=== PATIENT | female | born 2000 | race Caucasian/White ===

== ENCOUNTER 2018-03-09 11:05 | Emergency (ER) | payer BC, MEDICAID, SELFPAY ==
--- NOTE | 2018-03-09 11:05 | DT_ITS ---
This patient was seen during an EMR downtime March 07, 2018 - March 14, 2018. This patient may have a combination of paper and electronic documentation or all paper documentation. All documentation is viewable within the e-chart portion of [facility] for each patient visit.
[2018-03-12 09:44] LABS: Basophil% 1.1 % (0-1); Eosinophils% 2.3 % (0-5); Hematocrit 39.6 % (37-47); Hemoglobin 13.4 g/dl (12.0-15.0); Lymphocyte % 30.6 % (19-41); Mean Corp Hgb Conc 33.8 g/gl (32-36); Mean Corpuscular Hgb 28.3 pg (27.0-32.0); Mean Corpuscular Volume 83.7 fL (81-99); Neutrophil % 57.9 % (47-70); POSITIVE COUNT NO; POSITIVE DIFFERENTIAL NO; POSITIVE MORPHOLOGY NO; Platelet Count 228 K/mm3 (150-450); RBC Distribution Width CV 13.7 % (11.6-14.6); RBC Distribution Width SD 41.8 fl (35.1-43.9); Red Blood Count 4.73 M/mm3 (4.2-5.4); White Blood Count 7.3 K/mm3 (4.4-11.0)
[2018-03-12 09:45] LABS: Absolute Lymphocyte Count 2.22 X10^3/ul (0.83-4.51); Absolute Neutrophil Count 4.2 X10^3/uL (2.0-7.7); Basophil# 0.08 X10^3/uL; Eosinophil# 0.17 X10^3/uL; Lymphocyte # 2.22 X10^3/ul (4.0); Monocyte# 0.58 X10^3/uL
[2018-03-12 10:13] LABS: Pregnancy, Serum, hCG Quali. NEGATIVE Negative (0-9 Nonpreg)
== END 2018-03-10 01:43 | disposition home or self-care (01) ==
LOC: ED 03-10 17:38
PROVIDERS: Emergency Provider Emergency Medicine; Family Provider Family Medicine; PCP Family Medicine
DX: N93.9 Abnormal uterine and vaginal bleeding, unspecified (principal)
CPT/HCPCS: 84703; 85025; 86850; 86900; 99284; J7030; A4216

== ENCOUNTER 2018-03-13 15:50 | Emergency (ER) | payer BC, MEDICAID, SELFPAY ==
--- NOTE | 2018-03-13 15:50 | DT_ITS ---
This patient was seen during an EMR downtime March 07, 2018 - March 14, 2018. This patient may have a combination of paper and electronic documentation or all paper documentation. All documentation is viewable within the e-chart portion of [facility] [employer] for each patient visit.
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
== END 2018-03-13 17:40 | disposition home or self-care (01) ==
LOC: ED 03-14 08:18
PROVIDERS: Emergency Provider Emergency Medicine; Family Provider Family Medicine; PCP Family Medicine
DX: S00.83XA Contusion of other part of head, initial encounter (principal); S10.93XA Contusion of unspecified part of neck, initial encounter; Y08.89XA Assault by other specified means, initial encounter; Y93.9 Activity, unspecified; Y92.9 Unspecified place or not applicable; F17.200 Nicotine dependence, unspecified, uncomplicated
CPT/HCPCS: 70450; 70486; 70490; 99283

== ENCOUNTER 2018-05-10 19:34 | Emergency (ER) | payer BC, MEDICAID, SELFPAY ==
[2018-05-10 19:36] VITALS: BP 103/69; PULSE 124; RESP 18; TEMP 37.2; O2SAT 97; BMI 21.5
[2018-05-10 20:10] LABS: Bacteria 0 SEEN /hpf (None Seen); Red Blood Cells-Urine 0 SEEN /hpf (0-5)
[2018-05-10 20:20] LABS: Color, Urine Yellow (Yellow); Glucose, Dipstick Normal (Normal); Ketone-Dipstick 15 mg/dl (Negative); Leukocyte Esterase-Dipstick 25 /ul (Negative); Nitrite-Dipstick Negative (Negative); Occult Blood-Urine 10 /ul (Negative); Protein-Dipstick Negative (Negative); Urine Bilirubin Dipstick Negative (Negative); Urine Clarity Clear (Clear); Urine Urobilinogen Normal (Normal)
[2018-05-10 20:23] LABS: Absolute Lymphocyte Count 1.88 X10^3/ul (0.83-4.51); Absolute Neutrophil Count 9.8 X10^3/uL (2.0-7.7); Basophil# 0.05 X10^3/uL; Basophil% 0.4 % (0-1); Eosinophil# 0.21 X10^3/uL; Eosinophils% 1.5 % (0-5); Hematocrit 40.2 % (37-47); Hemoglobin 13.5 g/dl (12.0-15.0); Lymphocyte # 1.88 X10^3/ul (4.0); Lymphocyte % 13.7 % (19-41); Mean Corp Hgb Conc 33.6 g/gl (32-36); Mean Corpuscular Hgb 27.9 pg (27.0-32.0); Mean Corpuscular Volume 83.1 fL (81-99); Mean Platelet Vol. 10.1 fl (6.2-12.0); Monocyte# 1.68 X10^3/uL; Monocyte% 12.3 % (0-10); Neutrophil # 9.83 X10^3/uL (2.7-7.7); Neutrophil % 71.9 % (47-70); Platelet Count 208 K/mm3 (150-450); RBC Distribution Width CV 13.4 % (11.6-14.6); Red Blood Count 4.84 M/mm3 (4.2-5.4); White Blood Count 13.7 K/mm3 (4.4-11.0)
[2018-05-10 20:24] LABS: Differential Indicated SCAN CRITERIA MET; POSITIVE COUNT NO; POSITIVE DIFFERENTIAL YES; POSITIVE MORPHOLOGY NO
[2018-05-10 20:34] LABS: Anion Gap 7 (5-15); BUN 10 mg/dL (7-18); BUN/Creat Ratio 11.5 RATIO (10-20); Calcium,Total 8.9 mg/dL (8.5-10.1); Chloride 105 mmol/L (98-107); Creatinine, Serum 0.87 mg/dL (0.55-1.02); EST Glomerular Filtration Rate 89 mL/min (>60); Est Glom Filt Rate - Afr Amer 108 mL/min (>60); Estimated Creatinine Clearance 97.37 ml/min; Glucose 81 mg/dL (74-106); Potassium 3.5 mmol/L (3.5-5.1); Sodium Level 138 mmol/L (136-145)
[2018-05-10 20:39] LABS: Pregnancy, Serum, hCG Quali. NEGATIVE Negative (0-9 Nonpreg)
[2018-05-10] MEDS: 0.9% Normal Saline 1,000 ML 125 ML IV (20:45)
[2018-05-10 20:46] LABS: Platelet Estimate ADEQUATE (ADEQ); Red Cell Morphology NORM C+C NORMAL (NORM C&C)
[2018-05-10 20:51] LABS: Mucous, Urine 1+ /hpf (<or=2+); Squamous Epithelial Cells - UA 0-5 SEEN /hpf (5-10); White Blood Cells 0-5 SEEN /hpf (0-5)
[2018-05-10 20:58] VITALS: TEMP 36.2
--- NOTE | 2018-05-10 21:25 | ED.VISSUMM ---
- ER Visit Summary Date of Service: 05/10/18 Chief Complaint: [Abdominal pain] History of Present Illness: The patient is a 17 F [presents the emergency department with intermittent abdominal pain and cramping that lasts a few minutes at a time then resolves. Patient also complains of some pain in her low back. Patient states initially she started yesterday with a sore throat and some congestion and thought she was getting sick. Patient's had a slight cough. Patient also concerned because she is 2 weeks late on her menstrual period. Patient took a home test a week ago and it was negative. She has had fever at home up to 99.2.] Patient sore throat currently resolved. Patient does complain of slight headache. Physical Examination: [HEENT-PERRLA, EOMI. Cranial nerves II through XII grossly intact. TMs clear. Mucous membranes moist. No adenopathy. No pharyngeal erythema. No exudates. No adenopathy on exam. Cardiovascular-regular rate and rhythm without murmur or ectopy Lungs-clear to auscultation, chest wall stable without crepitus or subcu emphysema Abdomen-normoactive bowel sounds, soft, nontender, no rebound or rigidity, no peritoneal signs. Extremities-intact ?4, normal range of motion, normal pulses, atraumatic] Test Results: [CBC with differential obtained showed a white blood cell count of 13.7, hemoglobin 13, hematocrit 40, platelet 208. Chemistries were unremarkable. Urinalysis was normal. HCG was negative.] Emergency Department Course and Treatment: [Patient received a liter normal same fluid bolus] Treatment Plan: [Advised patient use ibuprofen or Tylenol for discomfort as I suspect she likely has a viral URI.] Disposition: [Discharged home in stable condition] Impression: [Viral upper respiratory infection] This note was generated with [employer] software. It may contain incorrect words, spelling, and punctuation that were not noted in review of the chart prior to signing ED Disposition - Plan for ED Patient: Chief Complaint: Abd Pain Referrals: Tim Cotter III, MD [Primary Care Provider] -
--- NOTE | 2018-05-10 21:28 | ED.DEP ---
ED Disposition - Plan for ED Patient: Chief Complaint: Abd Pain Instructions: ED URI Viral Referrals: Tim Cotter III, MD [Primary Care Provider] - 3-5 Days
[2018-05-10 21:35] VITALS: RESP 20
[2018-05-11 14:20] LABS: Pathologist Review Reviewed
== END 2018-05-10 21:35 | disposition home or self-care (01) ==
PROVIDERS: Emergency Provider Emergency Medicine; Family Provider Family Medicine; PCP Family Medicine
DX: J06.9 Acute upper respiratory infection, unspecified (principal); Z72.0 Tobacco use
CPT/HCPCS: 80048; 81001; 84703; 85025; 96360; 99283; J7030

== ENCOUNTER 2018-05-26 17:15 | Emergency (ER) | payer BC, MEDICAID, SELFPAY ==
[2018-05-26 17:15] VITALS: BP 119/70; PULSE 98; RESP 15; TEMP 36.6; O2SAT 93; BMI 21.3
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
[2018-05-26] MEDS: Ibuprofen 600 MG Tablet PO (17:44)
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
[2018-05-26 19:15] VITALS: BP 119/78; PULSE 67; RESP 16; O2SAT 99
== END 2018-05-26 19:16 | disposition home or self-care (01) ==
PROVIDERS: Emergency Provider Emergency Medicine; Family Provider Family Medicine; PCP Family Medicine
DX: S00.33XA Contusion of nose, initial encounter (principal); Y04.2XXA Assault by strike against or bumped into by another person, initial encounter; Y93.89 Activity, other specified; Y92.9 Unspecified place or not applicable; Z72.0 Tobacco use
CPT/HCPCS: 70450; 99283

== ENCOUNTER 2018-10-20 13:31 | Emergency (ER) | payer BC, MEDICAID, SELFPAY ==
[2018-10-20 13:32] VITALS: BP 124/72; PULSE 86; RESP 18; TEMP 36.6; O2SAT 98; BMI 18.6
[2018-10-20] MEDS: Ondansetron 4 MG/2 ML Vial IV (14:29)
[2018-10-20] MEDS: Morphine 4 MG/ML Syringe IV (14:29)
[2018-10-20] MEDS: 0.9% Normal Saline 1,000 ML 125 ML IV (14:29)
[2018-10-20 14:44] LABS: Absolute Lymphocyte Count 0.96 X10^3/ul (0.83-4.51); Basophil# 0.04 X10^3/uL; Basophil% 0.2 % (0-1); Differential Indicated SCAN CRITERIA MET; Eosinophils% 0.6 % (0-5); Hematocrit 40.3 % (37-47); Hemoglobin 13.6 g/dl (12.0-15.0); Lymphocyte # 0.96 X10^3/ul (4.0); Lymphocyte % 5.7 % (19-41); Mean Corp Hgb Conc 33.7 g/gl (32-36); Mean Corpuscular Hgb 28.3 pg (27.0-32.0); Mean Platelet Vol. 10.7 fl (6.2-12.0); Monocyte# 1.63 X10^3/uL; Monocyte% 9.7 % (0-10); Neutrophil # 14.04 X10^3/uL (2.7-7.7); Neutrophil % 83.6 % (47-70); POSITIVE COUNT NO; POSITIVE DIFFERENTIAL YES; POSITIVE MORPHOLOGY NO; Platelet Count 193 K/mm3 (150-450); RBC Distribution Width CV 13.7 % (11.6-14.6); RBC Distribution Width SD 42.1 fl (35.1-43.9); White Blood Count 16.8 K/mm3 (4.4-11.0)
[2018-10-20 14:52] LABS: Anion Gap 9 (5-15); BUN 8 mg/dL (7-18); BUN/Creat Ratio 11.1 RATIO (10-20); Calcium,Total 9.1 mg/dL (8.5-10.1); Chloride 110 mmol/L (98-107); Creatinine, Serum 0.72 mg/dL (0.55-1.02); EST Glomerular Filtration Rate 110 mL/min (>60); Est Glom Filt Rate - Afr Amer 133 mL/min (>60); Estimated Creatinine Clearance 103.49 ml/min; Glucose 86 mg/dL (74-106); Potassium 3.3 mmol/L (3.5-5.1); Sodium Level 142 mmol/L (136-145)
[2018-10-20 15:16] LABS: Pregnancy, Serum, hCG Quali. NEGATIVE Negative (0-9 Nonpreg)
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
[2018-10-20 16:17] LABS: Mucous, Urine 0 SEEN /hpf (<or=2+)
[2018-10-20 16:23] VITALS: BP 119/74; PULSE 79; RESP 12; O2SAT 98
[2018-10-20 16:36] LABS: Color, Urine Amber (Yellow); Glucose, Dipstick Normal (Normal); Leukocyte Esterase-Dipstick 100 /ul (Negative); Nitrite-Dipstick Negative (Negative); Occult Blood-Urine 250 /ul (Negative); Protein-Dipstick 100 mg/dl (Negative); Specific Gravity, Urine 1.025 (1.002-1.030); Urine Bilirubin Dipstick Negative (Negative); Urine Clarity Cloudy (Clear); Urine Urobilinogen Normal (Normal)
[2018-10-20 16:47] LABS: Ketone-Dipstick 150 mg/dl (Negative)
--- NOTE | 2018-10-20 16:47 | ED.DCSUM_ITS ---
- ER Visit Summary Date of Service: 10/20/18 Chief Complaint: [Abdominal pain] History of Present Illness: The patient is a 17 F [presents to the emergency department complaint of abdominal pain that started last evening. Patient states that she had some discomfort last night and throughout the night however about an hour and a half ago the pain became more severe she called her grandmother who brought her into the emergency department to be evaluated. Patient describes the pain is lower abdomen. She rates her pain a 10 out of 10. Patient has had multiple episodes of diarrhea this morning she has had some nausea and some vomiting. Patient states that she had not had a menstrual period for about 2 months but when she went to the restroom today she passed what looked like some pinkish tissue. Patient noted also that she started having vaginal bleeding. Patient also has had some dysuria symptoms and some frequency. She denies any fever. She denies any sick contacts. Patient is sexually active.] Physical Examination: [HEENT-PERRLA, EOMI. Cranial nerves II through XII grossly intact. TMs clear. Mucous membranes moist. No adenopathy. Cardiovascular-regular rate and rhythm without murmur or ectopy Lungs-clear to auscultation, chest wall stable without crepitus or subcu emphysema Abdomen-normoactive bowel sounds, soft. Patient has diffuse tenderness palpation over the lower abdomen and right lower quadrant. There is no rebound, rigidity, or perineal signs. Extremities-intact ?4, normal range of motion, normal pulses, atraumatic] Test Results: [CBC with differential obtained showed an elevated white blood cell count 16.8, hemoglobin 13.6, hematocrit 40, platelets 193. Chemistries unremarkable. HCG was negative. CT scan of the abdomen pelvis showed a normal appendix and large amount of stool throughout the sigmoid colon. Urinalysis positive for 25-50 WBCs, 50-100 RBCs, and rare bacteria.] Emergency Department Course and Treatment: [Patient was medicated with Zofran and morphine for pain. Patient was started on Bactrim.] Treatment Plan: [Patient will be given a prescription for Zofran and Bactrim and Pyridium] Disposition: [Discharged home in stable condition] Impression: [UTI Gastroenteritis Abdominal pain] This note was generated with [employer] dictation software. It may contain incorrect words, spelling, and punctuation that were not noted in review of the chart prior to signing ED Disposition - Plan for ED Patient: Chief Complaint: Abd Pain Referrals: Tim Cotter III, MD [Primary Care Provider] -
--- NOTE | 2018-10-20 16:47 | ED.RN ---
LASHANDA FROM LAB CALLED WITH [facility] OF [address]. DR. WILLIAM INFORMED OF SAME.
[2018-10-20 17:03] LABS: Bacteria RARE /hpf (None Seen); Red Blood Cells-Urine 50-100 SEEN /hpf (0-5); Squamous Epithelial Cells - UA 0-5 SEEN /hpf (5-10); White Blood Cells 25-50 SEEN /hpf (0-5)
[2018-10-20 17:04] LABS: Amorphous Sediment 1+ URATE
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
--- NOTE | 2018-10-20 17:10 | ED.DEP ---
ED Disposition - Plan for ED Patient: Chief Complaint: Abd Pain Instructions: ED Abdominal Pain Unkn Cause, ED UTI Cystitis Female, ED Gastroenteritis Viral Prescriptions: Ondansetron [Zofran Odt] 4 mg PO Q8H PRN PRN #10 tab PRN Reason: Nausea Phenazopyridine HCl [Pyridium] 200 mg PO BID PRN PRN #10 tab PRN Reason: Pain Smz/Tmp Ds [Bactrim Ds] 1 tab PO BID #10 tab Referrals: Tim Cotter III, MD [Primary Care Provider] - 3-5 Days Robbin Watts [STAFF PHYSICIAN] - 3-5 Days
[2018-10-20 17:26] VITALS: BP 125/74; PULSE 62; RESP 15; O2SAT 100
[2018-10-20] MEDS: Smz/Tmp Ds Tablet 1 TABLET PO (17:29)
[2018-10-25 10:15] LABS: Pathologist Review Reviewed
--- OUTSIDE RECORDS SUMMARY | 2018-12-25 11:18 | XMS RPT_ITS ---
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 Weight Last Period 60.8 kg 01/10/18 Cynthia Pelayo) 02/05/2018 3:53 PM Signed Subjective HPI Pt presents with right eye redness and drainage since this morning. She states it was matted shut this morning. She denies wearing contacts, does wear glasses. No cold symptoms. Does not think she got anything in her eye. Review of Systems Eyes: Positive for pain, discharge and redness. All other systems reviewed and are negative. PAST MEDICAL HISTORY Diagnosis Date - Anxiety and depression 03/22/2017 - NEGATIVE MEDICAL HISTORY - PTSD (post-traumatic stress disorder) 03/22/2017 Current Outpatient Prescriptions: ciprofloxacin HCl (CILOXAN) 0.3 % ophthalmic solution Use 1-2 Drops in the right eye four times daily for 7 days. Disp: 1 Bottle Rfl: 0 albuterol HFA (PROVENTIL HFA, VENTOLIN HFA) 90 mcg/actuation inhaler Inhale 2 Puffs as instructed every 4 hours as needed for Wheezing/Shortness of Breath. Disp: 1 Inhaler Rfl: 0 Joqzbusjyckzeoh-Ohwujiwbp-UN (BROMFED DM) 2-30-10 mg/5 mL syrup Take 5-10 ml po q6h prn Disp: 120 mL Rfl: 0 citalopram hydrobromide (CELEXA) 10 mg tablet Take 1 tablet by mouth once daily. Disp: 30 tablet Rfl: 2 No current facility-administered medications for this visit. PAST SURGICAL HISTORY Procedure Laterality Date - NONE FAMILY HISTORY Problem Relation Age of Onset - Asthma Father - Cancer Paternal Grandfather Lung, bone Social History Substance Use Topics - Smoking status: Current Some Day Smoker Years: 1.00 Types: Cigarettes - Smokeless tobacco: Never Used Comment: 2 cigarettes per weeks - Alcohol use No BP 108/60 Pulse 82 Temp 36.9 ?C (98.5 ?F) (Right Tympanic) Resp 16 Wt 60.8 kg (134 lb) LMP 01/10/2018 Objective Physical Exam Constitutional: She is oriented to person, place, and time and well-developed, well-nourished, and in no distress. HENT: Head: Normocephalic and atraumatic. Right Ear: External ear normal. Left Ear: External ear normal. Nose: Nose normal. Mouth/Throat: Oropharynx is clear and moist. Eyes: EOM are normal. Lids are everted and swept, no foreign bodies found. Right eye exhibits discharge. No foreign body present in the right eye. Left eye exhibits no discharge. No foreign body present in the left eye. Right conjunctiva is injected. Left conjunctiva is not injected. No signs of orbital or periorbital cellulitis. Neck: Normal range of motion. Cardiovascular: Normal rate, regular rhythm and normal heart sounds. Pulmonary/Chest: Effort normal and breath sounds normal. Lymphadenopathy: She has no cervical adenopathy. Neurological: She is alert and oriented to person, place, and time. Skin: Skin is warm and dry. Psychiatric: Affect and judgment normal. Nursing note and vitals reviewed. ASSESSMENT/PLAN: 1. Acute conjunctivitis of right eye, unspecified acute conjunctivitis type - ICD9: 372.00, ICD10: H10.31 - see medication orders- cipro otic. - course and contagiousness issues discussed, including hand washing. - Instructed to call if high fever, development of periorbital redness or swelling, eye pain, visual changes, concerns or if symptoms persist. Cynthia Pelayo PA-C Referring Provider: SELF [[id number]] Allergies As of Date: 02/05/2018 Noted Allergy Reaction SEASONAL ALLERGIES 11/28/2014 14 - Other: See Comments Comments: Runny nose Date Reviewed: 02/05/2018 Reviewed by: India Mills LPN - Fully Assessed Reason for Visit: Eye Problem [43] Cmt: Since this am right eye irritated Primary Visit Diagnosis:Acute conjunctivitis of right eye, unspecified acute conjunctivitis type [H10.31] Order(s):ciprofloxacin HCl (CILOXAN) 0.3 % ophthalmic solutionUse 1-2 Drops in the right eye four times daily for 7 days.Disp: 1 BottleRfl: 0 Prescriptions as of 02/05/2018 Sig: CIPROFLOXACIN 0.3 % EYE DROPS Use 1-2 Drops in the right ey* ALBUTEROL SULFATE HFA 90 MCG/* Inhale 2 Puffs as instructed * BROMPHENIRAMINE-PSEUDOEPHEDRI* Take 5-10 ml po q6h prn CITALOPRAM 10 MG TABLET Take 1 tablet by mouth once d* Medication notes this encounter RMLZIEFIEORLMBL-UHUQNBNKGPIHDZA-JU 2 MG-30 MG-10 MG/5 ML SYRUP >> India Mills LPN 02/05/2018 3:01 PM >> [place] [employer] Sat February 05, 2018 3:01 PM [place] done Problem List As Of Date 02/05/2018 Noted Resolved COMMON MIGRAINE [346.1] INVALID FOR* Well adolescent visit [Z00.129] INVALID FOR* Hamstring tightness of both lower extremities [*INVALID FOR* Anxiety and depression [F41.9, F32.9] INVALID FOR* PTSD (post-traumatic stress disorder) [F43.10] INVALID FOR* Prescriptions ordered this encounter Disp Refills Start End CIPROFLOXACIN 0.3 % EYE DROPS 1 Gio* 0 02/05/2018 02/12/2018 Route: RIGHT EYE Sig: Use 1-2 Drops in the right eye four times daily for 7 days. Encounter Status:Closed by CYNTHIA PELAYO PA-C on 02/05/18 PROGRESS Observed: 12/31/2017 Status: COMPLETED Source: [facility] 7:17 PM [facility] HNO ID: [id number] Author: Kim Richey) Thelma Service: (none) Author Type: Nurse Practitioner Type: Progress Notes Filed: 12/31/2017 7:48 PM Note Text: Subjective HPI Reinier Eugene is a 17 year old female who presents with a cough and congestion for the past 5 days, cough is worse, she has been taking Bromfed as prescribed here 2 days ago. She had to leave work due to cough. Review of Systems Constitutional: Negative. Negative for chills and fever. HENT: Positive for congestion. Negative for sore throat. Respiratory: Positive for cough and shortness of breath. Cardiovascular: Positive for chest pain (burning in bronchial area). Gastrointestinal: Negative. Negative for abdominal pain, diarrhea, nausea and vomiting. Skin: Negative. BP 121/78 Pulse 84 Temp 37.3 ?C (99.2 ?F) (Tympanic) Resp 18 Wt 60.3 kg (133 lb) LMP 11/19/2017 (Exact Date) SpO2 100% PAST MEDICAL HISTORY Diagnosis Date - Anxiety and depression 03/22/2017 - NEGATIVE MEDICAL HISTORY - PTSD (post-traumatic stress disorder) 03/22/2017 PAST SURGICAL HISTORY Procedure Laterality Date - NONE ALLERGIES Seasonal Allergies MEDICATIONS Vbpiksijnbnonou-Wgivvsxbk-HP (BROMFED DM) 2-30-10 mg/5 mL syrup Take 5-10 ml po q6h prn citalopram hydrobromide (CELEXA) 10 mg tablet Take 1 tablet by mouth once daily. FAMILY HISTORY Problem Relation Age of Onset - Asthma Father - Cancer Paternal Grandfather Lung, bone Social History Substance Use Topics - Smoking status: Current Some Day Smoker Years: 1.00 Types: Cigarettes - Smokeless tobacco: Never Used Comment: 2 cigarettes per weeks - Alcohol use No Objective Physical Exam Constitutional: She is well-developed, well-nourished, and in no distress. HENT: Head: Normocephalic. Right Ear: Tympanic membrane, external ear and ear canal normal. Left Ear: Tympanic membrane, external ear and ear canal normal. Nose: Nose normal. Mouth/Throat: Uvula is midline, oropharynx is clear and moist and mucous membranes are normal. No posterior oropharyngeal edema or posterior oropharyngeal erythema. Eyes: Conjunctivae are normal. Right eye exhibits no discharge. Left eye exhibits no discharge. Neck: Neck supple. Cardiovascular: Normal rate, regular rhythm and normal heart sounds. Pulmonary/Chest: Effort normal and breath sounds normal. No respiratory distress. She has no wheezes. She has no rales. Lymphadenopathy: She has no cervical adenopathy. Neurological: She is alert. Skin: Skin is warm and dry. No rash noted. Nursing note and vitals reviewed. ASSESSMENT/PLAN: 1. Cough - ICD9: 786.2, ICD10: R05 - ALBUTEROL SULFATE HFA 90 MCG/ACTUATION AEROSOL INHALER - INHALATIONAL SPACING DEVICE - PREDNISONE 20 MG TABLET Work note provided for today's visit. - Follow-up with your PCP in 3-5 days if symptoms have not improved or sooner if symptoms worsen - Discussed red flags and need for immediate medical evaluation if any occur. - Discussed supportive care treatment with fluids, rest and analgesia. - Discussed expected course of illness Kim Mitchell APRN.CNP CNOV Observed: 12/31/2017 Status: COMPLETED Source: [place] 6:45 PM [facility] REPOSITORY Office Visit (WSTR) REINIER EUGENE ([id number]) 2000 F Date Time Provider Department 12/31/17 6:45 PM KIM MITCHELL (VETERINARY PHARMACOLOGIST) [facility] During your visit today, we recorded the following information about you: Temperature Pulse Respiration Blood pressure 99.2 degrees 84/minute 18/minute 121/78 Weight Last Period 60.3 kg 11/19/17 Kim Mitchell APRN.CNP 12/31/2017 7:48 PM Signed Subjective HPI Reinier Eugene is a 17 year old female who presents with a cough and congestion for the past 5 days, cough is worse, she has been taking Bromfed as prescribed here 2 days ago. She had to leave work due to cough. Review of Systems Constitutional: Negative. Negative for chills and fever. HENT: Positive for congestion. Negative for sore throat. Respiratory: Positive for cough and shortness of breath. Cardiovascular: Positive for chest pain (burning in bronchial area). Gastrointestinal: Negative. Negative for abdominal pain, diarrhea, nausea and vomiting. Skin: Negative. BP 121/78 Pulse 84 Temp 37.3 ?C (99.2 ?F) (Tympanic) Resp 18 Wt 60.3 kg (133 lb) LMP 11/19/2017 (Exact Date) SpO2 100% PAST MEDICAL HISTORY Diagnosis Date - Anxiety and depression 03/22/2017 - NEGATIVE MEDICAL HISTORY - PTSD (post-traumatic stress disorder) 03/22/2017 PAST SURGICAL HISTORY Procedure Laterality Date - NONE ALLERGIES Seasonal Allergies MEDICATIONS Kkimpjaefinejtg-Isedbifpd-BV (BROMFED DM) 2-30-10 mg/5 mL syrup Take 5-10 ml po q6h prn citalopram hydrobromide (CELEXA) 10 mg tablet Take 1 tablet by mouth once daily. FAMILY HISTORY Problem Relation Age of Onset - Asthma Father - Cancer Paternal Grandfather Lung, bone Social History Substance Use Topics - Smoking status: Current Some Day Smoker Years: 1.00 Types: Cigarettes - Smokeless tobacco: Never Used Comment: 2 cigarettes per weeks - Alcohol use No Objective Physical Exam Constitutional: She is well-developed, well-nourished, and in no distress. HENT: Head: Normocephalic. Right Ear: Tympanic membrane, external ear and ear canal normal. Left Ear: Tympanic membrane, external ear and ear canal normal. Nose: Nose normal. Mouth/Throat: Uvula is midline, oropharynx is clear and moist and mucous membranes are normal. No posterior oropharyngeal edema or posterior oropharyngeal erythema. Eyes: Conjunctivae are normal. Right eye exhibits no discharge. Left eye exhibits no discharge. Neck: Neck supple. Cardiovascular: Normal rate, regular rhythm and normal heart sounds. Pulmonary/Chest: Effort normal and breath sounds normal. No respiratory distress. She has no wheezes. She has no rales. Lymphadenopathy: She has no cervical adenopathy. Neurological: She is alert. Skin: Skin is warm and dry. No rash noted. Nursing note and vitals reviewed. ASSESSMENT/PLAN: 1. Cough - ICD9: 786.2, ICD10: R05 - ALBUTEROL SULFATE HFA 90 MCG/ACTUATION AEROSOL INHALER - INHALATIONAL SPACING DEVICE - PREDNISONE 20 MG TABLET Work note provided for today's visit. - Follow-up with your PCP in 3-5 days if symptoms have not improved or sooner if symptoms worsen - Discussed red flags and need for immediate medical evaluation if any occur. - Discussed supportive care treatment with fluids, rest and analgesia. - Discussed expected course of illness VAISHALI Gandhi APRN.CNP 12/31/2017 7:21 PM Signed Take medications as prescribed. If not improving in 3-5 days, or you have worsening symptoms, see your primary care provider for recheck. COUGH: Your doctor wants you to have this information about coughing. The body has a cough reflex which helps expel mucous secretions and irritants from the lung and airway passages. Cough spasms are periods of continuous coughing lasting several minutes. Most coughs is caused by virus infections which may last for up to 2-3 weeks. Coughing helps to protect the lung from pneumonia. A persistent cough lasting longer than 4-6 weeks requires medical evaluation by your primary care doctor. Treatment of cough includes measures to loosen the cough and thin the mucous. Warm liquids, cough drops, and nonprescription cough medicine may help reduce dry hacking cough. Use a humidifier if necessary as dry air can make coughs worse. Ultrasonic humidifiers are especially useful as they kill molds and many bacteria. Some cough medicines have antihistamines, decongestants, or alcohol in them; there is no proof that any of these help control cough. Prescription cough medicine or those with dextromethorphan (DM) should be reserved for dry coughs that prevent sleep or cause spasms or chest pain. Avoid any exposure to cigarette smoke as this will worsen the cough or make it last much longer. Call your doctor right away if you or your child have increased breathing difficulty, a high fever, a cough that lasts longer than 3 weeks, or other serious complaints. Referring Provider: SELF [[id number]] Allergies As of Date: 12/31/2017 Noted Allergy Reaction SEASONAL ALLERGIES 11/28/2014 14 - Other: See Comments Comments: Runny nose Date Reviewed: 12/31/2017 Reviewed by: Kim ([facility]) Thelma - Fully Assessed Reason for Visit: URI symptoms [Other] Cmt: chest feels like it's on fire, coughing really bad Primary Visit Diagnosis:Cough [R05] Order(s):albuterol HFA (PROVENTIL HFA, VENTOLIN HFA) 90 mcg/actuation inhalerInhale 2 Puffs as instructed every 4 hours as needed for Wheezing/Shortness of Breath.Disp: 1 InhalerRfl: 0 Inhalational Spacing Device spcr1 Device one time only for 1 dose.Disp: 1 EachRfl: 0 predniSONE (DELTASONE) 20 mg tabletTake 1 tablet by mouth once daily for 4 days. Take daily with food.Disp: 4 tabletRfl: 0 Prescriptions as of 12/31/2017 Sig: BROMPHENIRAMINE-PSEUDOEPHEDRI* Take 5-10 ml po q6h prn ALBUTEROL SULFATE HFA 90 MCG/* Inhale 2 Puffs as instructed * INHALATIONAL SPACING DEVICE 1 Device one time only for 1 * PREDNISONE 20 MG TABLET Take 1 tablet by mouth once d* CITALOPRAM 10 MG TABLET Take 1 tablet by mouth once d* Medication notes this encounter CITALOPRAM 10 MG TABLET >> Genesis Serna CMA, MA 12/31/2017 6:51 PM >> ADAM DUARTEGENESIS Kriss Dec 31, 2017 6:51 PM Not taking Problem List As Of Date 12/31/2017 Noted Resolved COMMON MIGRAINE [346.1] INVALID FOR* Well adolescent visit [Z00.129] INVALID FOR* Hamstring tightness of both lower extremities [*INVALID FOR* Anxiety and depression [F41.8] INVALID FOR* PTSD (post-traumatic stress disorder) [F43.10] INVALID FOR* Other instructions from your clinician: Take medications as prescribed. If not improving in 3- 5 days, or you have worsening symptoms, see your primary care provider for recheck. COUGH: Your doctor wants you to have this information about coughing. The body has a cough reflex which helps expel mucous secretions and irritants from the lung and airway passages. Cough spasms are periods of continuous coughing lasting several minutes. Most coughs is caused by virus infections which may last for up to 2-3 weeks. Coughing helps to protect the lung from pneumonia. A persistent cough lasting longer than 4-6 weeks requires medical evaluation by your primary care doctor. Treatment of cough includes measures to loosen the cough and thin the mucous. Warm liquids, cough drops, and nonprescription cough medicine may help reduce dry hacking cough. Use a humidifier if necessary as dry air can make coughs worse. Ultrasonic humidifiers are especially useful as they kill molds and many bacteria. Some cough medicines have antihistamines, decongestants, or alcohol in them; there is no proof that any of these help control cough. Prescription cough medicine or those with dextromethorphan (DM) should be reserved for dry coughs that prevent sleep or cause spasms or chest pain. Avoid any exposure to cigarette smoke as this will worsen the cough or make it last much longer. Call your doctor right away if you or your child have increased breathing difficulty, a high fever, a cough that lasts longer than 3 weeks, or other serious complaints. Prescriptions ordered this encounter Disp Refills Start End ALBUTEROL SULFATE HFA 90 MCG/ACTUATI* 1 In* 0 12/31/2017 Route: INHALATION Sig: Inhale 2 Puffs as instructed every 4 hours as needed for Wheezing/Shortness of Breath. INHALATIONAL SPACING DEVICE 1 Ea* 0 12/31/2017 12/31/2017 Route: Misc Si Device one time only for 1 dose. PREDNISONE 20 MG TABLET 4 ta* 0 12/31/2017 01/04/2018 Route: ORAL Sig: Take 1 tablet by mouth once daily for 4 days. Take daily with food. Letter Text Kim Mitchell APRN.CNP Urgent Care [address] [facility] [address] Dept: [phone] 12/31/2017 Reinier Eugene [address] [facility] [address] To Whom it May Concern: This is to certify that Reinier Eugene was seen at our office for medical care. Reinier may return to work on 01/01/2018. If you have any questions please feel free to call. Sincerely: Kim Mitchell APRN.CNP Encounter Status:Closed by KIM MITCHELL on 12/31/17 PROGRESS Observed: 12/28/2017 Status: COMPLETED Source: [place] 4:46 PM [facility] HNO ID: [id number] Author: Corazon ([place]) VAISHALI Concepcion Service: (none) Author Type: Nurse Practitioner Type: Progress Notes Filed: 12/28/2017 4:51 PM Note Text: Subjective HPI HPI Reinier Eugene is a 17 year old female who presents today for CC of cough and congestion This started yesterday She is also having a sore throat. Symptoms are worsened by nothing She has tried no treatment or medications. Risk factors family members ill PMH not significant Pulse 95 Temp 36.4 ?C (97.6 ?F) (Left Tympanic) Resp 16 Wt 60.8 kg (134 lb) LMP 11/19/2017 (Exact Date) SpO2 99% ALLERGIES Allergen Reactions - Seasonal Allergies Other: See Comments Runny nose ACTIVE PROBLEM LIST Migraine Without Aura Well Adolescent Visit Hamstring Tightness of Both Lower Extremities Anxiety and Depression Ptsd (Post-Traumatic Stress Disorder) Family History Problem Relation Age of Onset - Asthma Father - Cancer Paternal Grandfather Lung, bone Social History Marital status: Single Spouse name: Years of education: Number of children: Occupational History 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 Negative for chills, fever and malaise/fatigue. HENT: Positive for congestion and sinus pain. Negative for ear pain and sore throat. Respiratory: Positive for cough. Negative for sputum production, shortness of breath and wheezing. Cardiovascular: Negative for chest pain. Musculoskeletal: Negative for myalgias. Skin: Negative for rash. Neurological: Negative for headaches. Objective Physical Exam Constitutional: She is well-developed, well-nourished, and in no distress. HENT: Head: Normocephalic and atraumatic. Right Ear: Tympanic membrane, external ear and ear canal normal. Tympanic membrane is not injected, not erythematous, not retracted and not bulging. No middle ear effusion. Left Ear: Tympanic membrane, external ear and ear canal normal. Tympanic membrane is not injected, not erythematous, not retracted and not bulging. No middle ear effusion. Nose: Mucosal edema and rhinorrhea present. Right sinus exhibits no maxillary sinus tenderness and no frontal sinus tenderness. Left sinus exhibits no maxillary sinus tenderness and no frontal sinus tenderness. Mouth/Throat: Uvula is midline and mucous membranes are normal. Posterior oropharyngeal erythema present. No oropharyngeal exudate, posterior oropharyngeal edema or tonsillar abscesses. Clear thick mucus - post nasal drainage Eyes: Conjunctivae and EOM are normal. Pupils are equal, round, and reactive to light. Neck: Normal range of motion. Cardiovascular: Normal rate, regular rhythm and normal heart sounds. Pulmonary/Chest: Effort normal and breath sounds normal. No respiratory distress. She has no decreased breath sounds. She has no wheezes. She has no rhonchi. She has no rales. Lymphadenopathy: Head (right side): No submental, no submandibular, no tonsillar, no preauricular and no posterior auricular adenopathy present. Head (left side): No submental, no submandibular, no tonsillar, no preauricular and no posterior auricular adenopathy present. She has no cervical adenopathy. Right cervical: No posterior cervical adenopathy present. Left cervical: No posterior cervical adenopathy present. Right: No supraclavicular adenopathy present. Left: No supraclavicular adenopathy present. Skin: Skin is warm and dry. Psychiatric: Affect normal. Nursing note and vitals reviewed. ASSESSMENT/PLAN: 1. URI with cough and congestion - ICD9: 465.9, ICD10: J06.9 - Discussed viral etiology and rationale for treatment. Rest as much as possible. Motrin or Tylenol as needed for fever or pain. Salt water gargles, chloraseptic spray or lozenges as needed for sore throat. Nasal saline irrigation at least 2 x day. Drink at least 8 glasses of fluids per day that aren't caffeinated. Eat a nutritious diet. Use a humidifier in your room at night. DO NOT take any other OTC cough or cold medication while taking the prescription Bromfed DM. It is ok to take an OTC pain reliever/fever brand inspector though such as advil or tylenol as needed. * Seek medical care immediately, call 911, go to ER if you have chest pain, difficulty breathing, shortness of breath, inability to swallow. Diagnosis and treatment plan were discussed and questions were answered to the patient's satisfaction. Pt acknowledged understanding of concepts and follow up plan. Specific signs and symptoms that would indicate the need for higher level of care were discussed in detail warranting prompt ER evaluation. Corazon Concepcion APRN.BLAIR CNOV Observed: 12/28/2017 Status: COMPLETED Source: [place] 4:30 PM [facility] REPOSITORY Office Visit (WSTR) REINIER EUGENE ([id number]) 2000 F Date Time Provider Department 12/28/17 4:30 PM CORAZON CONCEPCION (BLAIR) WSTR During your visit today, we recorded the following information about you: Temperature Pulse Respiration Weight 97.6 degrees 95/minute 16/minute 60.8 kg Last Period 11/19/17 Corazon Concepcion, DENTAL CERAMIST HELPER.BLAIR, DENTAL CERAMIST HELPER.VETERINARY PHARMACOLOGIST 12/28/2017 4:51 PM Signed Subjective HPI HPI Reinier Eugene is a 17 year old female who presents today for CC of cough and congestion This started yesterday She is also having a sore throat. Symptoms are worsened by nothing She has tried no treatment or medications. Risk factors family members ill PMH not significant Pulse 95 Temp 36.4 ?C (97.6 ?F) (Left Tympanic) Resp 16 Wt 60.8 kg (134 lb) LMP 11/19/2017 (Exact Date) SpO2 99% ALLERGIES Allergen Reactions - Seasonal Allergies Other: See Comments Runny nose ACTIVE PROBLEM LIST Migraine Without Aura Well Adolescent Visit Hamstring Tightness of Both Lower Extremities Anxiety and Depression Ptsd (Post-Traumatic Stress Disorder) Family History Problem Relation Age of Onset - Asthma Father - Cancer Paternal Grandfather Lung, bone Social History Marital status: Single Spouse name: Years of education: Number of children: Occupational History 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 Negative for chills, fever and malaise/fatigue. HENT: Positive for congestion and sinus pain. Negative for ear pain and sore throat. Respiratory: Positive for cough. Negative for sputum production, shortness of breath and wheezing. Cardiovascular: Negative for chest pain. Musculoskeletal: Negative for myalgias. Skin: Negative for rash. Neurological: Negative for headaches. Objective Physical Exam Constitutional: She is well-developed, well-nourished, and in no distress. HENT: Head: Normocephalic and atraumatic. Right Ear: Tympanic membrane, external ear and ear canal normal. Tympanic membrane is not injected, not erythematous, not retracted and not bulging. No middle ear effusion. Left Ear: Tympanic membrane, external ear and ear canal normal. Tympanic membrane is not injected, not erythematous, not retracted and not bulging. No middle ear effusion. Nose: Mucosal edema and rhinorrhea present. Right sinus exhibits no maxillary sinus tenderness and no frontal sinus tenderness. Left sinus exhibits no maxillary sinus tenderness and no frontal sinus tenderness. Mouth/Throat: Uvula is midline and mucous membranes are normal. Posterior oropharyngeal erythema present. No oropharyngeal exudate, posterior oropharyngeal edema or tonsillar abscesses. Clear thick mucus - post nasal drainage Eyes: Conjunctivae and EOM are normal. Pupils are equal, round, and reactive to light. Neck: Normal range of motion. Cardiovascular: Normal rate, regular rhythm and normal heart sounds. Pulmonary/Chest: Effort normal and breath sounds normal. No respiratory distress. She has no decreased breath sounds. She has no wheezes. She has no rhonchi. She has no rales. Lymphadenopathy: Head (right side): No submental, no submandibular, no tonsillar, no preauricular and no posterior auricular adenopathy present. Head (left side): No submental, no submandibular, no tonsillar, no preauricular and no posterior auricular adenopathy present. She has no cervical adenopathy. Right cervical: No posterior cervical adenopathy present. Left cervical: No posterior cervical adenopathy present. Right: No supraclavicular adenopathy present. Left: No supraclavicular adenopathy present. Skin: Skin is warm and dry. Psychiatric: Affect normal. Nursing note and vitals reviewed. ASSESSMENT/PLAN: 1. URI with cough and congestion - ICD9: 465.9, ICD10: J06.9 - Discussed viral etiology and rationale for treatment. Rest as much as possible. Motrin or Tylenol as needed for fever or pain. Salt water gargles, chloraseptic spray or lozenges as needed for sore throat. Nasal saline irrigation at least 2 x day. Drink at least 8 glasses of fluids per day that aren't caffeinated. Eat a nutritious diet. Use a humidifier in your room at night. DO NOT take any other OTC cough or cold medication while taking the prescription Bromfed DM. It is ok to take an OTC pain reliever/fever brand inspector though such as advil or tylenol as needed. * Seek medical care immediately, call 911, go to ER if you have chest pain, difficulty breathing, shortness of breath, inability to swallow. Diagnosis and treatment plan were discussed and questions were answered to the patient's satisfaction. Pt acknowledged understanding of concepts and follow up plan. Specific signs and symptoms that would indicate the need for higher level of care were discussed in detail warranting prompt ER evaluation. Corazon Concepcion APRN.BLAIR Concepcion APRN.VAISHALI THOMAS 12/28/2017 4:50 PM Signed ASSESSMENT/PLAN: 1. URI with cough and congestion - ICD9: 465.9, ICD10: J06.9 - Discussed viral etiology and rationale for treatment. Rest as much as possible. Motrin or Tylenol as needed for fever or pain. Salt water gargles, chloraseptic spray or lozenges as needed for sore throat. Nasal saline irrigation at least 2 x day. Drink at least 8 glasses of fluids per day that aren't caffeinated. Eat a nutritious diet. Use a humidifier in your room at night. DO NOT take any other OTC cough or cold medication while taking the prescription Bromfed DM. It is ok to take an OTC pain reliever/fever brand inspector though such as advil or tylenol as needed. * Seek medical care immediately, call 911, go to ER if you have chest pain, difficulty breathing, shortness of breath, inability to swallow. Referring Provider: SELF [[id number]] Allergies As of Date: 12/28/2017 Noted Allergy Reaction SEASONAL ALLERGIES 11/28/2014 14 - Other: See Comments Comments: Runny nose Date Reviewed: 12/28/2017 Reviewed by: Corazon (Blair) VAISHALI Concepcion - Fully Assessed Reason for Visit: Cough [28] Shortness of Breath [227] Primary Visit Diagnosis:URI with cough and congestion [J06.9] Order(s):Sybjimqhluwnddf-Eubgqkefa-RD (BROMFED DM) 2-30-10 mg/5 mL syrupTake 5-10 ml po q6h prnDisp: 120 mLRfl: 0 Prescriptions as of 12/28/2017 Sig: BROMPHENIRAMINE-PSEUDOEPHEDRI* Take 5-10 ml po q6h prn CITALOPRAM 10 MG TABLET Take 1 tablet by mouth once d* Problem List As Of Date 12/28/2017 Noted Resolved COMMON MIGRAINE [346.1] INVALID FOR* Well adolescent visit [Z00.129] INVALID FOR* Hamstring tightness of both lower extremities [*INVALID FOR* Anxiety and depression [F41.8] INVALID FOR* PTSD (post-traumatic stress disorder) [F43.10] INVALID FOR* Other instructions from your clinician: ASSESSMENT/PLAN: 1. URI with cough and congestion - ICD9: 465.9, ICD10: J06.9 - Discussed viral etiology and rationale for treatment. Rest as much as possible. Motrin or Tylenol as needed for fever or pain. Salt water gargles, chloraseptic spray or lozenges as needed for sore throat. Nasal saline irrigation at least 2 x day. Drink at least 8 glasses of fluids per day that aren't caffeinated. Eat a nutritious diet. Use a humidifier in your room at night. DO NOT take any other OTC cough or cold medication while taking the prescription Bromfed DM. It is ok to take an OTC pain reliever/fever brand inspector though such as advil or tylenol as needed. * Seek medical care immediately, call 911, go to ER if you have chest pain, difficulty breathing, shortness of breath, inability to swallow. Prescriptions ordered this encounter Disp Refills Start End NXPUJICGIOLYQQU-QEKQZHKOLJHVZIE-WB 2* 120 * 0 12/28/2017 Sig: Take 5-10 ml po q6h prn Encounter Status:Closed by CORAZON CONCEPCION CNP on 12/28/17 CNOV Observed: 12/13/2017 Status: COMPLETED Source: [place] 11:00 AM [facility] REPOSITORY Office Visit (FAMPWS) REINIER EUGENE ([id number]) 2000 F Date Time Provider Department 12/13/17 11:00 AM FLAKITA MARCUS) JENNI During your visit today, we recorded the following information about you: Pulse Respiration Blood pressure Weight 64/minute 18/minute 110/70 61.2 kg Flakita Marcus CNP 12/13/2017 11:14 AM Signed 12/13/2017 Patient presents with: Recheck: from urgent care, needs note to return to work SUBJECTIVE: This is a 17 year old that is here today for Above Complaints. Seen in on 12/07/2017 for right ankle pain after a fall down three steps. Right ankle was x-rayed with results as below. IMPRESSION: NO ACUTE BONY ABNORMALITY Template Checker: KATHERYN ? Transcribe Date/Time: Dec ?6:07P Dictated by : CESAR RODRIGUEZ MD This examination was interpreted and the report reviewed and electronically signed by: CESAR RODRIGUEZ MD on Dec ?6:14PM ?EST Results-Findings * * *Final Report* * * DATE OF EXAM: Dec ?6:06PM ? WOX ? 5297 ?- ?XR ANKLE 3V AP/LAT/OBL RT ?/ PROCEDURE REASON: Unspecified injury of right foot, initial encounter ?? ? * * * * Physician Interpretation * * * * ?HISTORY: ?Unspecified injury of right foot, initial encounter TECHNIQUE: ?3 views right ankle, 3 views right foot COMPARISON: ? None. RESULT: There is no acute fracture of the foot or ankle. Joint spaces are normal. Normal ankle mortise. Mild hallux valgus. Mild soft tissue swelling laterally about the fifth metatarsal head. ?There is no radiopaque foreign body identified in the soft tissue. Today she presents because she needs a letter releasing her back to work . She denies right ankle/foot pain, swelling, bruising, numbness, or tingling. She is able to bare full weight without any difficulties. PAST MEDICAL HISTORY Diagnosis Date - Anxiety and depression 03/22/2017 - NEGATIVE MEDICAL HISTORY - PTSD (post-traumatic stress disorder) 03/22/2017 ALLERGIES Seasonal Allergies MEDICATIONS Current Outpatient Prescriptions: citalopram hydrobromide (CELEXA) 10 mg tablet Take 1 tablet by mouth once daily. No current facility-administered medications for this visit. Medications and allergies reviewed by this provider. 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 OBJECTIVE: BP 110/70 (BP Site: Left Arm, BP Position: Sitting, BP Cuff Size: Regular Adult) Pulse 64 Resp 18 Wt 61.2 kg (135 lb) LMP 11/19/2017. Vital signs reviewed by this provider. APPEARANCE Well appearing, alert, in no acute distress, well- hydrated, well nourished. Right ankle: without pain, swelling, redness, painful movement, loss of ROM, stiffness and numbness. of the medial malleolus, lateral malleolus, talus, base of 5th metatarsal, calaneous, achilles tendon, anterior inferior tibiofibular ligament, anterior talofibular ligament and calcaneofibular ligament. ROM:WNL Right foot: without pain, swelling, redness, painful movement, loss of ROM, stiffness and numbness. of the calcaneus, heel, midfoot, dorsum, plantar and arch. ROM: WNL 2+pedal pulse with cap refill WNL. ASSESSMENT/PLAN: 1. Right ankle injury, sequela - ICD9: 908.9, ICD10: S99.911S - resolved - may return to work without restrictions - follow- yearly and as needed Flakita Podlogar, BLAIR Prescription instructions reviewed with patient as applicable. Patient advised if symptoms do not improve or if symptoms worsen sooner, to contact their primary care physician. Potential red flag symptoms discussed with the patient. Reviewed appropriate action plan to take if red flag symptoms occur. Patient agreeable to treatment plan. Referring Provider: SELF [[id number]] Allergies As of Date: 12/13/2017 Noted Allergy Reaction SEASONAL ALLERGIES 11/28/2014 14 - Other: See Comments Comments: Runny nose Date Reviewed: 12/13/2017 Reviewed by: Beverly Mojica LPN - Fully Assessed Reason for Visit: Recheck [92] Cmt: from urgent care, needs note to return to work Primary Visit Diagnosis:Right ankle injury, sequela [S99.911S] Prescriptions as of 12/13/2017 Sig: CITALOPRAM 10 MG TABLET Take 1 tablet by mouth once d* Problem List As Of Date 12/13/2017 Noted Resolved COMMON MIGRAINE [346.1] INVALID FOR* Well adolescent visit [Z00.129] INVALID FOR* Hamstring tightness of both lower extremities [*INVALID FOR* Anxiety and depression [F41.8] INVALID FOR* PTSD (post-traumatic stress disorder) [F43.10] INVALID FOR* Medications Discontinued During This Encounter medroxyPROGESTERone (DEPO-PROVERA) 1* 1 mL 4 09/20/2015 12/13/2017 Route: INTRAMUSCULAR Sig: Inject 1 mL intramuscularly every 12 weeks. Disc: Discontinued by Patient Follow-up and Disposition History Recorded Letter Text Department of Internal Medicine [address] [id number] Reinier Eugene [address] [address] December 13, 2017 TO WHOM IT MAY CONCERN: Reinier may return to work on 12/13/2017 with no restrictions Sincerely yours, Flakita Marcus CNP Encounter Status:Closed by FLAKITA MARCUS CNP on 12/13/17 PROGRESS Observed: 12/13/2017 Status: COMPLETED Source: [place] 10:54 AM [facility] [place] REPOSITORY HNO ID: [id number] Author: Flakita Richey) Podlogar Service: (none) Author Type: Nurse Practitioner Type: Progress Notes Filed: 12/13/2017 11:14 AM Note Text: 12/13/2017 Patient presents with: Recheck: from urgent care, needs note to return to work SUBJECTIVE: This is a 17 year old that is here today for Above Complaints. Seen in on 12/07/2017 for right ankle pain after a fall down three steps. Right ankle was x-rayed with results as below. IMPRESSION: NO ACUTE BONY ABNORMALITY Template Checker: KATHERYN ? Transcribe Date/Time: Dec ?6:07P Dictated by : CESAR RODRIGUEZ MD This examination was interpreted and the report reviewed and electronically signed by: CESAR RODRIGUEZ MD on Dec ?6:14PM ?EST Results-Findings * * *Final Report* * * DATE OF EXAM: Dec ?6:06PM ? WOX ? 5297 ?- ?XR ANKLE 3V AP/LAT/OBL RT ?/ PROCEDURE REASON: Unspecified injury of right foot, initial encounter ?? ? * * * * Physician Interpretation * * * * ?HISTORY: ?Unspecified injury of right foot, initial encounter TECHNIQUE: ?3 views right ankle, 3 views right foot COMPARISON: ? None. RESULT: There is no acute fracture of the foot or ankle. Joint spaces are normal. Normal ankle mortise. Mild hallux valgus. Mild soft tissue swelling laterally about the fifth metatarsal head. ?There is no radiopaque foreign body identified in the soft tissue. Today she presents because she needs a letter releasing her back to work . She denies right ankle/foot pain, swelling, bruising, numbness, or tingling. She is able to bare full weight without any difficulties. PAST MEDICAL HISTORY Diagnosis Date - Anxiety and depression 03/22/2017 - NEGATIVE MEDICAL HISTORY - PTSD (post-traumatic stress disorder) 03/22/2017 ALLERGIES Seasonal Allergies MEDICATIONS Current Outpatient Prescriptions: citalopram hydrobromide (CELEXA) 10 mg tablet Take 1 tablet by mouth once daily. No current facility-administered medications for this visit. Medications and allergies reviewed by this provider. 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 OBJECTIVE: BP 110/70 (BP Site: Left Arm, BP Position: Sitting, BP Cuff Size: Regular Adult) Pulse 64 Resp 18 Wt 61.2 kg (135 lb) LMP 11/19/2017. Vital signs reviewed by this provider. APPEARANCE Well appearing, alert, in no acute distress, well-hydrated, well nourished. Right ankle: without pain, swelling, redness, painful movement, loss of ROM, stiffness and numbness. of the medial malleolus, lateral malleolus, talus, base of 5th metatarsal, calaneous, achilles tendon, anterior inferior tibiofibular ligament, anterior talofibular ligament and calcaneofibular ligament. ROM:WNL Right foot: without pain, swelling, redness, painful movement, loss of ROM, stiffness and numbness. of the calcaneus, heel, midfoot, dorsum, plantar and arch. ROM: WNL 2+pedal pulse with cap refill WNL. ASSESSMENT/PLAN: 1. Right ankle injury, sequela - ICD9: 908.9, ICD10: S99.911S - resolved - may return to work without restrictions - follow- yearly and as needed Flakita Podlogar, VETERINARY PHARMACOLOGIST Prescription instructions reviewed with patient as applicable. Patient advised if symptoms do not improve or if symptoms worsen sooner, to contact their primary care physician. Potential red flag symptoms discussed with the patient. Reviewed appropriate action plan to take if red flag symptoms occur. Patient agreeable to treatment plan. XR ANKLE 3V AP/LAT/OBL Observed: 12/07/2017 Status: F Source: [place] RT 6:06 PM [facility] REPOSITORY * * *Final Report* * * DATE OF EXAM: Dec 07 2017 6:06PM WOX 5297 - XR ANKLE 3V AP/LAT/OBL RT / PROCEDURE REASON: Unspecified injury of right foot, initial encounter * * * * Physician Interpretation * * * * HISTORY: Unspecified injury of right foot, initial encounter TECHNIQUE: 3 views right ankle, 3 views right foot COMPARISON: None. RESULT: There is no acute fracture of the foot or ankle. Joint spaces are normal. Normal ankle mortise. Mild hallux valgus. Mild soft tissue swelling laterally about the fifth metatarsal head. There is no radiopaque foreign body identified in the soft tissue. IMPRESSION: NO ACUTE BONY ABNORMALITY Template Checker: KATHERYN Transcribe Date/Time: Dec 07 2017 6:07P Dictated by : CESAR RODRIGUEZ MD This examination was interpreted and the report reviewed and electronically signed by: CESAR RODRIGUEZ MD on Dec 07 2017 6:14PM EST [id number] XR FOOT 3V AP/LAT/OBL Observed: 12/07/2017 Status: F Source: [place] RT 6:06 PM [facility] REPOSITORY * * *Final Report* * * DATE OF EXAM: Dec 07 2017 6:06PM WOX 5337 - XR FOOT 3V AP/LAT/OBL RT / PROCEDURE REASON: Unspecified injury of right foot, initial encounter * * * * Physician Interpretation * * * * HISTORY: Unspecified injury of right foot, initial encounter TECHNIQUE: 3 views right ankle, 3 views right foot COMPARISON: None. RESULT: There is no acute fracture of the foot or ankle. Joint spaces are normal. Normal ankle mortise. Mild hallux valgus. Mild soft tissue swelling laterally about the fifth metatarsal head. There is no radiopaque foreign body identified in the soft tissue. IMPRESSION: NO ACUTE BONY ABNORMALITY Template Checker: KATHERYN Transcribe Date/Time: Dec 07 2017 6:07P Dictated by : CESAR RODRIGUEZ MD This examination was interpreted and the report reviewed and electronically signed by: CESAR RODRIGUEZ MD on Dec 07 2017 6:14PM EST [id number] PROGRESS Observed: 12/07/2017 Status: COMPLETED Source: [place] 5:53 PM [facility] REPOSITORY HNO ID: [id number] Author: Cachorro Foster (Rt) Service: (none) Author Type: [place] Type: Progress Notes Filed: 12/07/2017 6:03 PM Note Text: Radiology Service Progress Note PATIENT NAME: Reinier Eugene DATE OF SERVICE: December 07, 2017 TIME: 5:53 PM PATIENT IDENTITY VERIFICATION COMPLETED USING TWO (2) METHODS: Patient confirmed name verbally and Date of . PATIENT GENDER DATA: Female. status: : No status: NO. PATIENT RELEVANT IMPLANT DATA REVIEWED: Not Applicable RADIOLOGY DEPARTMENT: General X-ray: Exam(s) Completed: Lower Extremity X-Ray(s): Ankle, Right and Foot, Right: PERIPHERAL IV DATA: Not applicable SIGNED BY: RT Kristin December 07, 2017 5:53 PM PROGRESS Observed: 12/07/2017 Status: COMPLETED Source: [place] 5:34 PM [facility] REPOSITORY HNO ID: [id number] Author: Marcela Copeland Service: (none) Author Type: Nurse Practitioner Type: Progress Notes Filed: 12/07/2017 7:23 PM Note Text: Subjective HPI HPI Reinier Eugene is a 17 year old female who presents today for CC of fall/right foot pain. This started 45 minutes ago. Has tried nothing for relief. Symptoms are worsened by movement. Risk factors none. Denies history of surgery or injury to right foot. Denies possibility of being . States is having some numbness of toes near pain. ROS PAST MEDICAL HISTORY Diagnosis Date - Anxiety and depression 03/22/2017 - NEGATIVE MEDICAL HISTORY - PTSD (post-traumatic stress disorder) 03/22/2017 PAST SURGICAL HISTORY Procedure Laterality Date - NONE ALLERGIES Seasonal Allergies MEDICATIONS citalopram hydrobromide (CELEXA) 10 mg tablet Take 1 tablet by mouth once daily. medroxyPROGESTERone (DEPO-PROVERA) 150 mg/mL injection Inject 1 mL intramuscularly every 12 weeks. FAMILY HISTORY Problem Relation Age of Onset - Asthma Father - Cancer Paternal Grandfather Lung, bone Social History Substance Use Topics - Smoking status: Current Some Day Smoker Years: 1.00 Types: Cigarettes - Smokeless tobacco: Never Used Comment: 2 cigarettes per weeks - Alcohol use No Blood pressure 112/70, pulse 82, temperature 36.8 ?C (98.3 ?F), temperature source Tympanic, resp. rate 18, last menstrual period 11/19/2017. Objective Physical Exam Constitutional: She is well-developed, well-nourished, and in no distress. Non-toxic appearance. She does not have a sickly appearance. No distress. Cardiovascular: Pulses: Dorsalis pedis pulses are 2+ on the right side Posterior tibial pulses are 2+ on the right side Musculoskeletal: Right ankle: She exhibits decreased range of motion. She exhibits no swelling, no ecchymosis, no deformity, no laceration and normal pulse. Tenderness. No posterior TFL, no head of 5th metatarsal and no proximal fibula tenderness found. Achilles tendon normal. Achilles tendon exhibits no pain, no defect and normal Monsivais's test results. Right foot: There is decreased range of motion, tenderness and bony tenderness. There is no swelling, normal capillary refill, no crepitus, no deformity and no laceration. Feet: Skin: She is not diaphoretic. ASSESSMENT/PLAN: 1. Injury of right foot, initial encounter - ICD9: 959.7, ICD10: S99.921A -no bony abnormality noted on xray -given stretches/exercises -Rest, Ice, Compression, Elevation discussed -discussed use of ibuprofen -follow up with primary care if symptoms persist/worsen in 10-14 days -cisco wrap placed on patient, given crutches - XR FOOT GENERAL 3V AP/LAT/OBL RT - XR ANKLE GENERAL 3V AP/LAT/OBL RT - Dictated by : CESAR RODRIGUEZ MD IMPRESSION: NO ACUTE BONY ABNORMALITY Prescription instructions reviewed with patient as applicable. Patient advised if symptoms do not improve or if symptoms worsen sooner, to contact the office for further evaluation by their primary care physician. Potential red flag symptoms discussed with the patient. Reviewed appropriate action plan to take if red flag symptoms occur. Patient agreeable to treatment plan. Marcela Copeland CNP CNOV Observed: 12/07/2017 Status: COMPLETED Source: [place] 5:15 PM [facility] REPOSITORY Office Visit ([facility]) LAUREN EUGENEIS Giovanni ([id number]) 2000 F Date Time Provider Department 12/07/17 5:15 PM MARCELA COPELAND (BLAIR) [facility] During your visit today, we recorded the following information about you: Temperature Pulse Respiration Blood pressure 98.3 degrees 82/minute 18/minute 112/70 Last Period 11/19/17 Marcela Copeland CNP 12/07/2017 7:23 PM Signed Subjective HPI HPI Reinier Eugene is a 17 year old female who presents today for CC of fall/right foot pain. This started 45 minutes ago. Has tried nothing for relief. Symptoms are worsened by movement. Risk factors none. Denies history of surgery or injury to right foot. Denies possibility of being . States is having some numbness of toes near pain. ROS PAST MEDICAL HISTORY Diagnosis Date - Anxiety and depression 03/22/2017 - NEGATIVE MEDICAL HISTORY - PTSD (post-traumatic stress disorder) 03/22/2017 PAST SURGICAL HISTORY Procedure Laterality Date - NONE ALLERGIES Seasonal Allergies MEDICATIONS citalopram hydrobromide (CELEXA) 10 mg tablet Take 1 tablet by mouth once daily. medroxyPROGESTERone (DEPO-PROVERA) 150 mg/mL injection Inject 1 mL intramuscularly every 12 weeks. FAMILY HISTORY Problem Relation Age of Onset - Asthma Father - Cancer Paternal Grandfather Lung, bone Social History Substance Use Topics - Smoking status: Current Some Day Smoker Years: 1.00 Types: Cigarettes - Smokeless tobacco: Never Used Comment: 2 cigarettes per weeks - Alcohol use No Blood pressure 112/70, pulse 82, temperature 36.8 ?C (98.3 ?F), temperature source Tympanic, resp. rate 18, last menstrual period 11/19/2017. Objective Physical Exam Constitutional: She is well-developed, well-nourished, and in no distress. Non-toxic appearance. She does not have a sickly appearance. No distress. Cardiovascular: Pulses: Dorsalis pedis pulses are 2+ on the right side Posterior tibial pulses are 2+ on the right side Musculoskeletal: Right ankle: She exhibits decreased range of motion. She exhibits no swelling, no ecchymosis, no deformity, no laceration and normal pulse. Tenderness. No posterior TFL, no head of 5th metatarsal and no proximal fibula tenderness found. Achilles tendon normal. Achilles tendon exhibits no pain, no defect and normal Monsivais's test results. Right foot: There is decreased range of motion, tenderness and bony tenderness. There is no swelling, normal capillary refill, no crepitus, no deformity and no laceration. Feet: Skin: She is not diaphoretic. ASSESSMENT/PLAN: 1. Injury of right foot, initial encounter - ICD9: 959.7, ICD10: S99.921A -no bony abnormality noted on xray -given stretches/exercises -Rest, Ice, Compression, Elevation discussed -discussed use of ibuprofen -follow up with primary care if symptoms persist/worsen in 10-14 days -cisco wrap placed on patient, given crutches - XR FOOT GENERAL 3V AP/LAT/OBL RT - XR ANKLE GENERAL 3V AP/LAT/OBL RT - Dictated by : CESAR RODRIGUEZ MD IMPRESSION: NO ACUTE BONY ABNORMALITY Prescription instructions reviewed with patient as applicable. Patient advised if symptoms do not improve or if symptoms worsen sooner, to contact the office for further evaluation by their primary care physician. Potential red flag symptoms discussed with the patient. Reviewed appropriate action plan to take if red flag symptoms occur. Patient agreeable to treatment plan. BLAIR Dominguez CNP 12/07/2017 6:40 PM Signed ASSESSMENT/PLAN: 1. Injury of right foot, initial encounter - ICD9: 959.7, ICD10: S99.921A -no bony abnormality noted on xray -given stretches/exercises -Rest, Ice, Compression, Elevation discussed -discussed use of ibuprofen -follow up with primary care if symptoms persist/worsen in 10-14 days - XR FOOT GENERAL 3V AP/LAT/OBL RT - XR ANKLE GENERAL 3V AP/LAT/OBL RT Referring Provider: SELF [200] Allergies As of Date: 12/07/2017 Noted Allergy Reaction SEASONAL ALLERGIES 11/28/2014 14 - Other: See Comments Comments: Runny nose Date Reviewed: 12/07/2017 Reviewed by: Marcela Copeland - Fully Assessed Reason for Visit: Pain (foot) [760] Cmt: after falling down steps x 45 mins ago Reason For Visit History Recorded Primary Visit Diagnosis:Injury of right foot, initial encounter [S99.921A] Order(s):XR FOOT GENERAL 3V AP/LAT/OBL RT [[id number]] Order #: [id number] FUTURE XR ANKLE GENERAL 3V AP/LAT/OBL RT [[id number]] Order #: [id number] FUTURE Prescriptions as of 12/07/2017 Sig: CITALOPRAM 10 MG TABLET Take 1 tablet by mouth once d* MEDROXYPROGESTERONE 150 MG/ML* Inject 1 mL intramuscularly e* Medication notes this encounter MEDROXYPROGESTERONE 150 MG/ML INTRAMUSCULAR SUSPENSION >> Sophia Braxton Ma 12/07/2017 5:26 PM >> SOPHIA BRAXTON MA Dec 07, 2017 5:26 PM not doing depo Problem List As Of Date 12/07/2017 Noted Resolved COMMON MIGRAINE [346.1] INVALID FOR* Well adolescent visit [Z00.129] INVALID FOR* Hamstring tightness of both lower extremities [*INVALID FOR* Anxiety and depression [F41.8] INVALID FOR* PTSD (post-traumatic stress disorder) [F43.10] INVALID FOR* Other instructions from your clinician: ASSESSMENT/PLAN: 1. Injury of right foot, initial encounter - ICD9: 959.7, ICD10: S99.921A -no bony abnormality noted on xray -given stretches/exercises -Rest, Ice, Compression, Elevation discussed -discussed use of ibuprofen -follow up with primary care if symptoms persist/worsen in 10-14 days - XR FOOT GENERAL 3V AP/LAT/OBL RT - XR ANKLE GENERAL 3V AP/LAT/OBL RT Letter Text [place] [facility] Marcela Copeland CNP [address] [phone] 12/07/2017 Reinier Eugene [facility]# [id number] [address] [place] [address] TO WHOM IT MAY CONCERN: This is to confirm that Reinier Eugene had an appointment and was seen at the [facility] in the Department of Urgent Care by Marcela Copeland CNP on 12/07/2017. Sincerely yours, Marcela Copeland CNP Encounter Status:Closed by MARCELA COPELAND CNP on 12/07/17 ALLERGIES ALLERGIES DATE TYPE / CODE NAME / CODE REACTION SEVERITY SOURCE 10/20/2018 Drug No Known Unknown [facility] Allergy/416 Allergies/B87260 Hospital 447615(SNOM 0388(RXNORM) Repository ED CT) 11/28/2014 Environ/420 SEASONAL OTHER: SEE [facility] 945354(SNOM ALLERGIES [facility] [place] ED CT) Repository ENCOUNTERS ENCOUNTERS ADMIT/DISCHARGE ACCOUNT NUMBER ADMITTING ENCOUNTER LOCATION SOURCE CLASS 10/20/2018/10/20/19 [id number] Emergency [address] ding:ED Repository 08/03/2018/08/03/20 [id number] Emergency BBuilding:ER [address] Repository 06/10/2018/06/10/20 [id number] Emergency BBuilding:ER [address] Repository 05/26/2018/05/26/20 [id number] Emergency [address] ding:ED Repository 05/10/2018/05/10/20 [id number] Emergency [address] ding:ED Repository 03/16/2018/03/17/20 [id number] Ambulatory [address] Repository 03/13/2018/03/13/20 [id number] Emergency [address] ding:ED Repository 03/09/2018/03/10/20 [id number] Emergency [address] ding:ED Repository 02/05/2018/02/08/20 [id number] Ambulatory [address] Repository 12/31/2017/01/01/20 [id number] Ambulatory [address] Repository 12/28/2017/12/29/19 [id number] Ambulatory [address] Repository 12/13/2017/12/15/19 [id number] Ambulatory [address] Repository 12/07/2017/12/08/19 [id number] Ambulatory [address] Repository 12/07/2017/12/09/19 [id number] Ambulatory [address] Repository PAYERS PAYERS ENCOUNTER GUARANTOR PAYER SUBSCRIBER SOURCE 10/20/2018 REINIER RHONEA Primary TANMAY M [id number] Insurance:[facility]ERTY Number: [id number] [place], [place] [id number] Repository [address]Tcp: ([phone]) Date:1779-35-00CX [phone] () 319903JBDSAUE [place] [address]QR: 10/20/2018 Secondary REINIERPRIYANK PIRES [place] Insurance:[facility] JOHNSONDOB: Community COMMUNITY PLANPolicy [id number] Hospital Number: Repository [id number] Date:7276-33-76VL [address] [place] [address]MP: 10/20/2018 Tertiary NOT GIVENUNK [place] Insurance:SELF PAY [facility] Number: Effective Repository Date:2018-10-20 08/03/2018 REINIER R Primary [facility] JOHNSONDOB: Insurance:[facility]: [facility] w [employer]OSS INSCOPolicy [id number] Repository liberty Number: [place], [place] [id number] [place], [place] [address]Ywo: (330) Date:2018-08-03 95028Fpz: () [id number] [phone] Name:SOMMER DIAMOND ()Tel: ([phone]) [phone], [place] 000-0000 () [address]ZH: 08/03/2018 Secondary REINIER R [facility] [id number] Repository Number: bharati padron [id number] [place], [place] Date:2018-08-03 74[address]Qpe: [phone]) [id number] [phone] Name:XPO Box (HP)Tel: 000 [address], [place] 000-0000 (WP) [address]XL: 06/10/2018 REINIER R Primary [facility], 1930[facility]1983DOB: [facility] [id number] Repository liberty Number: [place], [place] [id number] [place], [place] [address]Hnr: (330) Date:2018-06-1078430Riq: () [id number] [phone] Name:BPO BOX (HP)Tel: (000) 138[address]Udfndyj, [place] 000-[address] (WP) [address]VY: 06/10/2018 Secondary REINIER [facility] Insurance[facility] [id number] Repository Number: bharati padron [id number] [place], [place] Date:2018-06-10 44[address]Arq: 330 [id number] [phone] Name:X[address] Box (HP)Tel: (000) [phone], [place] 000-0000 (WP) [address]SR: 05/26/2018 Reinier Rhonea Primary [id number] Insurance:[facility] access hospital: [facility] LIBERTY Number: [id number], [place] [id number] Repository [address]Dwm: (330) Date:7332-03-21KD [phone] () 855029DCPGWES, [place] [address]HH: 05/26/2018 Secondary REINIER RHONEA [place] [facility] JOHNSONDOB: [facility] [id number] Hospital Number: Repository [id number] Date:5038-76-75DX [address] [address]ZF: 05/26/2018 Tertiary NOT GIVENUNK [place] Insurance:SELF PAY [facility] Number: Effective Repository Date:2018-05-26 05/10/2018 Reinier Rhonea Primary TANMAY [id number] Insurance:ANTHEMPolicy JOHNSONDOB: [facility] LIBERTY Number: [id number], [place] [id number] Repository [address]Ijx: (330) Date:9948-61-75PT [phone] () [address] [place] [address] [place] [address]WV: 05/10/2018 Secondary REINIER RHONEA [place] [facility] [id number] Hospital Number: Repository [id number] Date:7790-91-05PL [address] [address]RP: 05/10/2018 Tertiary NOT GIVENUNK [place] Insurance:SELF PAY [facility] Number: Effective Repository Date:2018-05-10 03/13/2018 Reinier Rhonea Primary TANMAY W[id number] Insurance:ANTHEMPolicy JOHNSONDOB: [facility] Number: [id number] County Counseling [id number] Repository [address]Dak: (330) Date:9055-41-88IG [phone] () 295054HTOZVEE [place] [address]EK: 03/13/2018 Secondary REINIER RHONEA [place] Insurance:[facility] JOHNSONDOB: [facility] [id number] Hospital Number: Repository [id number] Date:2075-57-01FD [address] [address]QT: 03/13/2018 Tertiary NOT GIVENUNK [place] Insurance:SELF PAY [facility] Number: Effective Repository Date:2018-03-13 03/09/2018 Reinier Rhonea Primary TANMAY C[id number] [facility] JOHNSONDOB: [facility] Number: [id number], [place] [id number] Repository [address]Qzi: 330) Date:2964-07-68XP [phone] (GX) [address]337[address]AOOWXCI, [place] [address]JP: 03/09/2018 Secondary REINIER Cyr [facility] JOHNSONDOB: Community COMMUNITY PLANPoly [id number] Hospital Number: Repository [id number] Date:8165-09-06WY [address] [place] [address]XT: 03/09/2018 Tertiary NOT GIVENVICKY Cyr Insurance:SELF PAY [facility] Number: Effective Repository Date:2018-03-09
== END 2018-10-20 17:39 | disposition home or self-care (01) ==
LOC: ED 15:36
PROVIDERS: Emergency Provider Emergency Medicine; Family Provider Family Medicine; PCP Family Medicine
DX: N39.0 Urinary tract infection, site not specified (principal); A08.4 Viral intestinal infection, unspecified; N93.9 Abnormal uterine and vaginal bleeding, unspecified; Z72.0 Tobacco use
CPT/HCPCS: 74176; 80048; 81001; 84703; 85025; 96361; 96374; 96375; 99284; J7030; A4216; J2405

== ENCOUNTER 2019-01-19 14:48 | Emergency (ER) | payer BC, MEDICAID, SELFPAY ==
[2019-01-19 14:49] VITALS: BP 106/69; PULSE 101; RESP 16; TEMP 36.5; O2SAT 98; BMI 19.6
--- NOTE | 2019-01-19 15:16 | ED.DCSUM_ITS ---
- ER Visit Summary Date of Service: 01/19/19 Chief Complaint: Headache History of Present Illness: The patient is a 18 F with a headache that started when she woke up short time prior to arrival. The patient had been having right ear pain for about a week. She went to urgent care last night and was found to have a cerumen impaction. They could not remove the impaction and they referred her to ENT. She went to ENT today. She does not remember the name of the doctor. They irrigated her ear and she was told that everything looked okay. They thought that her pain was jawbone related. Patient took some ibuprofen and took a nap. She woke up with increasing pain in her right ear and over her right sikh. No other associated symptoms. No history of this. No trauma. No rash. No weakness or numbness. No vision changes. No fevers. Physical Examination: Afebrile and vital signs are unremarkable. Patient is sitting in a dark room and appears uncomfortable. Skin appears unremarkable. HEENT exam is unremarkable. TM is intact without bulging, erythema, bleeding, pus, or any other abnormality. She does have tenderness to palpation of her tragus only. Skin appears normal without rash. No lymphadenopathy. No meningeal signs. Cranial nerves grossly intact. Normal strength and sensation. Test Results: None indicated. The patient had a CT of her brain just over a 6 months ago which was unremarkable. I have no suspicion for tumor, abscess, bleeding, or any other acute issue. Emergency Department Course and Treatment: I suspect the patient has irritation to her ear canal from the irrigation. There is no sign of infection at this point. Patient was treated with fluids, Compazine, Benadryl, and Toradol. Will reassess. Patient and family did request a CT. Given her severe pain, this was performed. There is some partial opacification of her right sphenoid sinus. I do not believe this is causing her symptoms. Otherwise the scan was unremarkable. On reevaluation, patient is resting comfortably. Patient will be discharged home. Follow-up with ENT tomorrow. Treatment Plan: As above Disposition: Discharge Impression: 1. Acute cephalgia This note was generated with [employer]eler[employer] software. It may contain incorrect words, spelling, and punctuation that were not noted in review of the chart prior to signing ED Disposition - Plan for ED Patient: Referrals: Tim Cotter III, MD [Primary Care Provider] -
[2019-01-19] MEDS: Ketorolac 30 MG/ML Syringe 15 MG IV (15:23)
[2019-01-19] MEDS: 0.9% Normal Saline 1,000 ML 999 ML IV (15:23)
[2019-01-19] MEDS: DiphenhydrAMINE 50 MG/ML Syringe 25 MG IV (15:24)
[2019-01-19] MEDS: proCHLORPERazine 10 MG/2 ML Vial IV (15:24)
--- NOTE | 2019-01-19 15:31 | CT_ITS ---
STUDY: CT BRAIN WITHOUT CONTRAST REASON FOR EXAM: Female, 18 years old. Headaches. RADIATION DOSAGE (If Supplied By Facility): CTDIvol = ( 44.99 ) mGy, DLP = ( 745.49 ) mGycm TECHNIQUE: Transaxial CT imaging of the brain was performed without administration of intravenous contrast material. Individualized dose optimization techniques were used for this CT. COMPARISON: No relevant priors. FINDINGS: Normal soft tissue structures. Normal calvarium. Normal size ventricles and extra-axial spaces for the patient's age. Normal white matter tracts of the cerebral hemispheres. Normal basal ganglia and thalami. Normal brainstem. Normal cerebellum. There is no intracranial hemorrhage. There are no findings of an acute ischemic infarction. Partial opacification of the right sphenoid sinus. CT/Brain/Head without Contrast IMPRESSION: Partial opacification of the right sphenoid sinus. Electronically Signed: Hudson Cano, at 15:54 EDT , Service support ,
--- NOTE | 2019-01-19 16:05 | ED.DEP ---
ED Disposition - Plan for ED Patient: Instructions: ED Cephalgia Unspecified Additional Instructions: follow up with your ent
== END 2019-01-19 16:41 | disposition home or self-care (01) ==
PROVIDERS: Emergency Provider Emergency Medicine; Family Provider Family Medicine; PCP Family Medicine
DX: R51 Headache (principal); Z72.0 Tobacco use
CPT/HCPCS: 70450; 96361; 96374; 96375; 99283; J7030; A4216

== ENCOUNTER 2020-04-19 14:20 | Outpatient (CLI) | payer BC, MEDICAID, SELFPAY ==
[2020-04-19 14:48] VITALS: TEMP 36.9; O2SAT 97
[2020-04-19 14:49] VITALS: BP 114/78; PULSE 80
[2020-04-19 15:02] VITALS: BMI 22.1
[2020-04-19 15:23] LABS: Mucous, Urine 0 SEEN /hpf (<or=2+); Red Blood Cells-Urine 0 SEEN /hpf (0-5)
[2020-04-19 15:31] LABS: ROM Internal Control Test YES-OK TO RESULT pt. (Internal QC); ROM Patient Test Negative (Negative)
[2020-04-19 15:33] LABS: Color, Urine Yellow (Yellow); Glucose, Dipstick Normal (Normal); Ketone-Dipstick Negative (Negative); Urine Bilirubin Dipstick Negative (Negative); Urine Clarity Sl Cldy (Clear)
[2020-04-19 15:34] LABS: Nitrite-Dipstick Negative (Negative); Occult Blood-Urine Negative /ul (Negative); Protein-Dipstick 15 mg/dl (Negative); Urine Urobilinogen Normal (Normal); Urine pH 6.5 (5.0 - 8.0)
[2020-04-19 15:35] LABS: Leukocyte Esterase-Dipstick 100 /ul (Negative)
[2020-04-19 15:36] LABS: Amorphous Sediment 1+ URATE; Bacteria RARE /hpf (None Seen); Squamous Epithelial Cells - UA 0-5 SEEN /hpf (5-10); White Blood Cells 5-10 SEEN /hpf (0-5)
[2020-04-19 15:42] LABS: Amphetamine Urine VISTA NEGATIVE (<1000 ng/mL); Barbiturate Urine VISTA NEGATIVE (< 200 ng/mL); Benzodiazepine Urine VISTA NEGATIVE (< 200 ng/mL); Cocaine Urine VISTA NEGATIVE (< 300 ng/mL); Ecstacy Urine VISTA NEGATIVE (< 500 ng/mL); Methadone Urine VISTA NEGATIVE (< 300 ng/mL); PCP Urine VISTA NEGATIVE (< 25 ng/mL); THC Urine VISTA NEGATIVE (< 50 ng/mL); Vista UDS pH Range 6
[2020-04-19] MEDS: Betamethasone/Betamethasone 30 MG/5 ML Vial 12 MG IM (16:56)
[2020-04-19] MEDS: Lactated Ringers 1,000 ML 125 ML IV (16:56)
[2020-04-19 18:09] LABS: Group B Strep DNA By PCR Negative (Negative); Internal Control PASS; Probe Check PASS; Specimen Processing Control PASS
[2020-04-19 18:20] VITALS: BP 113/69; PULSE 81; TEMP 37.1
[2020-04-19 19:44] VITALS: BP 115/67; PULSE 84; TEMP 36.8; O2SAT 99
--- NOTE | 2020-04-20 10:56 | OB.TRI.HP_ITS ---
- Problem List (1) 32 weeks gestation of Status: Acute (2) Abdominal cramping complicating , antepartum Status: Acute History of Present Illness Date of Service: 04/19/20 Was patient seen by the physician?: No Reason For Visit: R/O LABOR Date of Service: 04/19/20 Final MICHELE: 06/12/20 Gestational age: 32 Weeks and 3 Days History of Present Illness: Patient is a at 32.2 weeks gestation that presented to labor and delivery for cramping and possible loss of fluid. Patient began having cramping earlier today. Denies any vaginal bleeding but thinks she may be leaking fluid. Positive movement. Allergies No Known Allergies Allergy (Verified 01/19/19 14:52) Laboratory Studies: Laboratory Tests 04/19/20 04/19/20 04/19/20 Range/Units 17:00 14:55 14:55 Urine Color Yellow (Yellow) Urine Clarity Sl Cldy (Clear) Urine pH 6.5 (5.0 - 8.0) Ur Specific [place] 1.020 (1.002-1.030) Urine Protein 15 H (Negative) mg/dl Urine Glucose (UA) Normal (Normal) mg/dl Urine Ketones Negative (Negative) mg/dl Urine Occult Blood Negative (Negative) /ul Urine Nitrite Negative (Negative) Urine Bilirubin Negative (Negative) mg/dL Urine Urobilinogen Normal (Normal) mg/dl Ur Leukocyte Esterase 100 H (Negative) /ul Urine RBC 0 SEEN (0-5) /hpf Urine WBC 5-10 SEEN (0-5) /hpf Ur Squamous Epith Cells 0-5 SEEN (5-10) /hpf Amorphous Sediment 1+ URATE Urine Bacteria RARE (None Seen) /hpf Urine Mucus 0 SEEN (<or=2+) /hpf Vag Amniotic Fld Detect (Negative) Urine Opiates Screen NEGATIVE (< 300 ng/mL) Urine Methadone Screen NEGATIVE (< 300 ng/mL) Ur Barbiturates Screen NEGATIVE (< 200 ng/mL) Ur Phencyclidine Scrn NEGATIVE (< 25 ng/mL) Ur Amphetamines Screen NEGATIVE (<1000 ng/mL) U Methamphetamin-MDMA NEGATIVE (< 500 ng/mL) U Benzodiazepines Scrn NEGATIVE (< 200 ng/mL) Urine Cocaine Screen NEGATIVE (< 300 ng/mL) U Cannabinoids Screen NEGATIVE (< 50 ng/mL) Ur Drug Screen Comment Group B Strep DNA Negative (Negative) Specimen Comment Not Reportable 04/19/20 Range/Units 14:55 Urine Color (Yellow) Urine Clarity (Clear) Urine pH (5.0 - 8.0) Ur Specific [place] (1.002-1.030) Urine Protein (Negative) mg/dl Urine Glucose (UA) (Normal) mg/dl Urine Ketones (Negative) mg/dl Urine Occult Blood (Negative) /ul Urine Nitrite (Negative) Urine Bilirubin (Negative) mg/dL Urine Urobilinogen (Normal) mg/dl Ur Leukocyte Esterase (Negative) /ul Urine RBC (0-5) /hpf Urine WBC (0-5) /hpf Ur Squamous Epith Cells (5-10) /hpf Amorphous Sediment Urine Bacteria (None Seen) /hpf Urine Mucus (<or=2+) /hpf Vag Amniotic Fld Detect Negative (Negative) Urine Opiates Screen (< 300 ng/mL) Urine Methadone Screen (< 300 ng/mL) Ur Barbiturates Screen (< 200 ng/mL) Ur Phencyclidine Scrn (< 25 ng/mL) Ur Amphetamines Screen (<1000 ng/mL) U Methamphetamin-MDMA (< 500 ng/mL) U Benzodiazepines Scrn (< 200 ng/mL) Urine Cocaine Screen (< 300 ng/mL) U Cannabinoids Screen (< 50 ng/mL) Ur Drug Screen Comment Group B Strep DNA (Negative) Specimen Comment Review of Systems Constitutional: Denies: Anorexia, Fever Eyes: Denies: Blurred vision Respiratory: Denies: Cough Gastrointestinal: Reports: Abdominal Pain Genitourinary: Reports: Frequency, Urgency Neurological: Denies: Headaches Physical Exam Vitals: Vital Signs Temp Pulse BP Pulse Ox 98.3 F 84 115/67 99 04/19/20 19:44 04/19/20 19:44 04/19/20 19:44 04/19/20 19:44 General: Alert Cardiovascular: Regular rate Lungs: Normal air movement Abdomen: Soft, Non Tender Neurological: Cranial nerves II-XII grossly intact Cervix Dilation (cm): 1.5 - RN exam Station: -3 Effacement (%): 50 NST - FHR Rate Baby A Baseline: 135 Variability:: Moderate Accelerations:: 15 x 15 Decelerations:: None NST Reactive:: Yes FHR Category:: Category I Uterine Activity:: TOCO showing irregular contractions. Palpate mild and relaxed in between Impression/Plan at 32.2 weeks gestation with cramping and possible loss of fluid A/P ROM plus collected and was negative Continuous monitoring UA collected- Sent for culture IV fluids- LR @ 125 cc/hr Oral hydration CE 1.5/50/-3- will recheck after IV hydration Celestone 12mg IM x1 now and again in 24 hours Anticipate discharge home if no CE and feeling better after IV hydration
== END 2020-04-19 20:45 | disposition home or self-care (01) ==
LOC: WPOUT 14:37 → WP 14:39
PROVIDERS: PCP Family Medicine; Referring Provider Advanced Practice Midwife; Visit Provider Advanced Practice Midwife
DX: O26.893 Other specified pregnancy related conditions, third trimester (principal); R10.9 Unspecified abdominal pain; Z3A.32 32 weeks gestation of pregnancy
CPT/HCPCS: 96360; 96361; 59025; 59050; 80307; 81001; 84112; 87081; 87086; 87088; 87653; 96372; 99218; J7120; G0378; J0702

== ENCOUNTER 2020-05-08 16:20 | Outpatient (CLI) | payer BC, MEDICAID, SELFPAY ==
[2020-05-08] VITALS (8 sets, daily range): BP systolic 103–122; BP diastolic 63–73; PULSE 69–86; TEMP 36.6–36.8; O2SAT 96–98; BMI 23.3
[2020-05-08] MEDS: Lactated Ringers 1,000 ML 999 ML IV (18:10)
[2020-05-08] MEDS: Lactated Ringers 1,000 ML 100 ML IV (20:01)
[2020-05-08 20:20] LABS: Absolute Neutrophil Count 14.2 X10^3/uL (2.0-7.7); Basophil# 0.05 X10^3/uL; Basophil% 0.3 % (0-1); Eosinophil# 0.02 X10^3/uL; Eosinophils% 0.1 % (0-5); Hematocrit 34.8 % (37-47); Hemoglobin 11.5 g/dL (12.0-15.0); Lymphocyte % 8.6 % (19-41); Mean Corpuscular Hgb 29.1 pg (27.0-32.0); Mean Corpuscular Volume 88.1 fL (81-99); Mean Platelet Vol. 11.7 fl (6.2-12.0); Monocyte# 0.52 X10^3/uL; Monocyte% 3.2 % (0-10); NRBC Flagged by Analyzer 0 % (0-5); Neutrophil # 14.15 X10^3/uL (2.7-7.7); Neutrophil % 87.1 % (47-70); Platelet Count 235 K/mm3 (150-450); RBC Distribution Width CV 13.6 % (11.6-14.6); RBC Distribution Width SD 43.2 fl (35.1-43.9); Red Blood Count 3.95 M/mm3 (4.2-5.4); White Blood Count 16.3 K/mm3 (4.4-11.0)
[2020-05-08 21:25] LABS: Group B Strep DNA By PCR Negative (Negative); Internal Control PASS; Probe Check PASS; Specimen Processing Control PASS
[2020-05-09 01:35] LABS: Probe Check PASS; Specimen Processing Control PASS
[2020-05-09 01:59] VITALS: BP 112/64; PULSE 70; TEMP 36.6; O2SAT 97
[2020-05-09 04:11] VITALS: BP 107/57; PULSE 78; TEMP 36.3; O2SAT 95
[2020-05-09] MEDS: Lactated Ringers 1,000 ML 100 ML IV (06:26)
[2020-05-09 07:22] VITALS: BP 101/63; PULSE 81; TEMP 36.6; O2SAT 96
--- NOTE | 2020-05-09 08:25 | HP.PCM_ITS ---
- Problem List (1) 35 weeks gestation of Status: Acute (2) contractions Status: Acute History Date of Admission: 05/08/20 Final MICHELE: 06/12/20 Gestational age: 35 Weeks and 1 Days History of this : This is a 19 year-old, 35 weeks gestation who presented for routine OB appointment with contractions. She was callie every 4 to 5 minutes and her cervix was found to be 2 cm dilated in the office. She was given her first dose of betamethasone and sent over to labor and delivery for further monitoring. No leaking of fluid or vaginal bleeding. Good movement. Allergies No Known Allergies Allergy (Verified 05/08/20 18:38) Home Medications: Home Medications Prenatabs FA 1 tab PO DAILY 04/19/20 Smoking Status: Former smoker Substance Use Type: Marijuana Number of Fetus(es): 1 NST - FHR Rate Baby A Baseline: 110 Variability:: Moderate Accelerations:: 15 x 15 Decelerations:: None NST Reactive:: Yes FHR Category:: Category I Uterine Activity:: Initially ctx's 1-3 min, now irregular and infrequent ctx's History Past Pregnancies: Past Pregnancies Delivery Date Name GA/ Weeks Outcome Route Wt Infant Sex Labor Length Anesthesia Delivery Location Provider FOB Physical Exam Vitals: Vital Signs Temp Pulse BP Pulse Ox 97.9 F 81 101/63 96 05/09/20 07:22 05/09/20 07:22 05/09/20 07:22 05/09/20 07:22 General: Alert, No apparent distress HEENT: Atraumatic Abdomen: Soft, Non Tender, Gravid Extremities:: No edema Neurological: Neuro grossly intact 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 - Cvx changed from 2 to 3 cm - Contractions have now improved and patient is now comfortable after IVF hydration. She reports contractions are infrequent and irregular - CEFM overnight and FHT reactive. Contractions now infrequent on toco - Cvx remains 3 cm this morning - S/p 1 dose of BMZ - Ok for d/c home. Discussed return precautions and when to call. She has follow up later today in the office for 2nd dose of BMZ - Pt agreeable to plan
[2020-05-09 08:40] VITALS: RESP 16
== END 2020-05-09 08:20 | disposition home or self-care (01) ==
LOC: OBT 16:29 → WP 19:57
PROVIDERS: PCP Family Medicine; Referring Provider Obstetrics & Gynecology; Visit Provider Obstetrics & Gynecology
DX: O47.03 False labor before 37 completed weeks of gestation, third trimester (principal); Z3A.35 35 weeks gestation of pregnancy; Z87.891 Personal history of nicotine dependence
CPT/HCPCS: 96361 ×2; 96365; 96366; 36415; 59025; 59050; 85025; 86850; 86900; 86901; 87081; 87635; 87653; 94799; 99218; J7120; G0378; U0003

== ENCOUNTER → 2020-05-29 17:40 | Outpatient (CLI) | payer BC, MEDICAID, SELFPAY ==
[2020-05-08 17:08] VITALS: BMI 23.3
== END ==
PROVIDERS: PCP Family Medicine; Referring Provider Obstetrics & Gynecology; Visit Provider Obstetrics & Gynecology
DX: Z11.59 Encounter for screening for other viral diseases (principal)
CPT/HCPCS: 87635; 94799; U0003

== ENCOUNTER 2020-06-04 21:50 | Inpatient (IN) | payer BC, MEDICAID, SELFPAY ==
[2020-05-08 17:08] VITALS: BMI 23.3
[2020-06-04 21:21] VITALS: BMI 25.1
[2020-06-04 22:07] LABS: ROM Internal Control Test YES-OK TO RESULT pt. (Internal QC)
[2020-06-04 22:08] LABS: ROM Patient Test POSITIVE (Negative)
[2020-06-04] MEDS: Lactated Ringers 1,000 ML 50 ML IV (22:22)
[2020-06-04 22:40] LABS: Absolute Lymphocyte Count 2.86 X10^3/uL (0.83-4.51); Absolute Neutrophil Count 10.9 X10^3/uL (2.0-7.7); Basophil# 0.04 X10^3/uL; Basophil% 0.3 % (0-1); Eosinophil# 0.09 X10^3/uL; Eosinophils% 0.6 % (0-5); Hematocrit 33.7 % (37-47); Hemoglobin 11.4 g/dL (12.0-15.0); Lymphocyte # 2.86 X10^3/ul (4.0); Lymphocyte % 18.5 % (19-41); Mean Corp Hgb Conc 33.8 g/dL (32-36); Mean Corpuscular Hgb 28.9 pg (27.0-32.0); Mean Corpuscular Volume 85.5 fL (81-99); Mean Platelet Vol. 10.7 fl (6.2-12.0); Monocyte# 1.43 X10^3/uL; Monocyte% 9.2 % (0-10); NRBC Flagged by Analyzer 0 % (0-5); Neutrophil # 10.94 X10^3/uL (2.7-7.7); Neutrophil % 70.6 % (47-70); Platelet Count 280 K/mm3 (150-450); RBC Distribution Width CV 13.7 % (11.6-14.6); RBC Distribution Width SD 42.5 fl (35.1-43.9); Red Blood Count 3.94 M/mm3 (4.2-5.4); White Blood Count 15.5 K/mm3 (4.4-11.0)
[2020-06-04 22:56] VITALS: BP 118/83; PULSE 83; TEMP 36.9; O2SAT 98
[2020-06-05] VITALS (55 sets, daily range): BP systolic 98–123; BP diastolic 60–85; PULSE 71–113; RESP 18–20; TEMP 36.5–37.3; O2SAT 91–100
[2020-06-05] MEDS: Lactated Ringers 500 ML 999 ML IV ×3 (00:27→02:00)
[2020-06-05 01:06] LABS: Amphetamine Urine VISTA NEGATIVE (<1000 ng/mL); Barbiturate Urine VISTA NEGATIVE (< 200 ng/mL); Benzodiazepine Urine VISTA NEGATIVE (< 200 ng/mL); Cocaine Urine VISTA NEGATIVE (< 300 ng/mL); Ecstacy Urine VISTA NEGATIVE (< 500 ng/mL); Methadone Urine VISTA NEGATIVE (< 300 ng/mL); PCP Urine VISTA NEGATIVE (< 25 ng/mL); THC Urine VISTA NEGATIVE (< 50 ng/mL); Vista UDS pH Range 6
--- NOTE | 2020-06-05 01:45 | PCM.PN.BLA ---
Progress Note at 39.0 weeks gestation S.R.O.M Category 2 tracing with occasional late decelerations Fluid bolus Position changes FSE placed CE- 5.5/70/-2 Dr. Watts notified and monitoring tracing STROKE Vital Signs/Narrative: Vital Signs Temp Pulse BP Pulse Ox 06/05/20 01:28 93 96 06/05/20 01:26 104 H 123/85 H 06/05/20 01:20 97.8 F 06/05/20 01:03 83 100 06/05/20 00:08 98.0 F 81 120/85 H 06/04/20 22:56 98.4 F 83 118/83 H 98
--- NOTE | 2020-06-05 01:51 | PCM.HP.OB ---
- Problem List (1) 38 weeks gestation of Status: Acute (2) Spontaneous rupture of membranes Status: Acute (3) History of marijuana use Status: Acute (4) Asymmetric intrauterine growth restriction (IUGR) Status: Acute History Date of Admission: 05/08/20 Final MICHELE: 06/12/20 Gestational age: 39 Weeks and 0 Days History of this : This is a 19 year-old, G [2], P [0], at 38.6 weeks gestational age that presents with S.R.O.M and contractions every couple of minutes. Positive movement. course is complicated by late care, transfer of care, history of marijuana use and IUGR. Allergies No Known Allergies Allergy (Verified 06/04/20 22:25) Home Medications: Home Medications Prenatabs FA 1 tab PO DAILY 04/19/20 Smoking Status: Former smoker Substance Use Type: Marijuana - Negative urine tox upon admission Number of Fetus(es): 1 NST - FHR Rate Baby A Baseline: 140 Variability:: Moderate Accelerations:: 15 x 15 Decelerations:: None NST Reactive:: Yes FHR Category:: Category I Uterine Activity:: irregular contractions History Past Pregnancies: Past Pregnancies Delivery Date Name GA/ Weeks Outcome Route Wt Infant Sex Labor Length Anesthesia Delivery Location Provider FOB Labs: A+ Rubella - Non immune HB neg HIV- NR RPR- NR GBS negative GC/CH- negative COVID-19 negative Expected Infant Delivery Method: Spontaneous Vaginal Review of Systems Constitutional: Denies: Chills, Fever Cardiovascular: Denies: Chest Pain, Edema Respiratory: Denies: Cough, Shortness of Breath Gastrointestinal: Denies: Abdominal Pain Neurological: Denies: Blurred vision, Headaches Physical Exam Vitals: Vital Signs Temp Pulse BP Pulse Ox 97.8 F 93 123/85 H 96 06/05/20 01:20 06/05/20 01:28 06/05/20 01:26 06/05/20 01:28 General: Alert, Oriented x3, Cooperative Cardiovascular: Regular rate Lungs: Normal air movement Abdomen: Soft, Non Tender, Gravid Neurological: Cranial nerves II-XII grossly intact Cervix Dilation (cm): 5 Station: -2 Effacement (%): 70 Assessment/Plan All Active Problems 32 weeks gestation of (Acute) Abdominal cramping complicating , antepartum (Acute) 35 weeks gestation of (Acute) contractions (Acute) 38 weeks gestation of (Acute) Spontaneous rupture of membranes (Acute) History of marijuana use (Acute) Asymmetric intrauterine growth restriction (IUGR) (Acute) This is a 19 year-old, G [2], P [0], at 38.6 weeks gestational age with S.R.O.M A: Category 1 tracing P: Admit to labor and delivery Routine labs GBS negative IV fluids per protocol Epidural for pain control when indicated Declines LARC Dr. Watts notified of admission and is collaborative physician
--- NOTE | 2020-06-05 02:30 | PCM.PN.BLA ---
Progress Note S: Patient reports painful ctxs O: cvx - 7/80/0 fhts now 155 with minimal & some moderate variability; over past 1.5 hours has had periods of absent variability and intermittent late decelerations tocos - ctxs Q1-2 minutes A&P: Will proceed with epidural placement in OR. Patient aware that may need to proceed with for non reassuring heart tracing but at this time plan for close observation as FHT with some reassuring moderate variability. STROKE Vital Signs/Narrative: Vital Signs Temp Pulse BP Pulse Ox 06/05/20 02:14 98.5 F 06/05/20 01:28 93 96 06/05/20 01:26 104 H 123/85 H 06/05/20 01:20 97.8 F 06/05/20 01:03 83 100 06/05/20 00:08 98.0 F 81 120/85 H 06/04/20 22:56 98.4 F 83 118/83 H 98
[2020-06-05] MEDS: fentaNYL-bupivacaine (epidural) 100 ML BAG EPIDURAL (02:43)
[2020-06-05] MEDS: Oxytocin 30 units/NS 500 ml 30 UNITS/500 ML IV.SOLN 334 UNITS IV (03:19)
--- NOTE | 2020-06-05 03:28 | PCM.OPRPT ---
Problem List (1) 38 weeks gestation of Status: Acute (2) Spontaneous rupture of membranes Status: Acute (3) History of marijuana use Status: Acute (4) Asymmetric intrauterine growth restriction (IUGR) Status: Acute Report of Operation Date of Procedure: 06/05/20 Pre-Operative Diagnosis: S.R.O.M, term gestation Post-Operative Diagnosis: same, live female Type of Anesthesia:: Epidural Vaginal Delivery Maternal Presentation: Spontaneous Rupture of Membranes Patient was a at 38.6 weeks gestation with S.R.O.M Amniotic Membrane Rupture Type: Spontaneous at home Amniotic Fluid Description: Clear Final MICHELE: 06/12/20 Gestational age: 39 Weeks and 0 Days Description of Procedure: Patient progressed to 7cm and decision was made due to tracing to transfer patient to OR to have epidural placed and to be monitored. Epidural placed without difficulty and patient quickly progressed to complete dilation. head delivered with maternal pushing efforts. Anterior shoulder followed by body delivered quickly without delay. Infant vigorous and placed on maternal abdomen for delayed cord clamping. Cord clamped after 1 minute and cut by FOB. placed immediatley skin to skin with patient. Pitocin started for active management of 3rd stage. Placenta delivered spontaneously and intact, 3 vessel cord. Perineum inspected and intact. Two small labial lacerations on right side noticed but not actively bleeding. No repairs needed. Fundus firm and hemostasis achieved. EBL 250cc. Mom and baby stable and bonding. Dr. Watts present in OR Presentation: Vertex, ROSEMARIE Placental Delivery Description: Spontaneous Placenta Disposition: [facility] Cord Vessel Description: 3 Vessels Cord Gases drawn per routine: VBG Cord Entanglement: None Drain: Cortez to straight drain Estimated Blood Loss: 250 A gender: Female (1 minute): 8 (5 minute): 9 Episiotomy Description: None Laceration: 1st degree - Labial laceration Medications given after delivery: IV Pitocin Complications: None
[2020-06-05] MEDS: Ibuprofen 600 MG Tablet PO ×2 (05:01→18:51)
[2020-06-05] MEDS: 0.9% Saline Lock 10 ML Syringe IV (05:19)
--- NOTE | 2020-06-05 15:37 | NURSING ---
reviewed student charting and agree. charting used for educational and learning purposes.
--- NOTE | 2020-06-05 16:13 | CASEMGMT ---
Social Work Labor and Delivery unit Social work consult received and noted for maternal history of THC use, depression/anxiety, and PTSD. Chart reviewed and other risk factors noted that mother of baby (MOB) also with late care, transfer of care at 23 weeks, and at one point during homelessness. MOB just delivered baby today 06/05/2020. Will plan to see and will be in the morning on 06/06/2020 for assessment and provision of resources as indicated. -KAMINI Coffey, HAND PATTERN MARKER
[2020-06-06] VITALS (8 sets, daily range): BP systolic 100–107; BP diastolic 61–75; PULSE 67–85; RESP 15–18; TEMP 36.6–36.8; O2SAT 98
--- NOTE | 2020-06-06 04:24 | NURSING ---
Pt refused MMR vaccine for Rubella Nonimmune status. Educated pt and information sheet provided.
--- NOTE | 2020-06-06 08:19 | PCM.PN.OB ---
Patient Problems: Active and Suspected Problems 38 weeks gestation of (Acute) Spontaneous rupture of membranes (Acute) History of marijuana use (Acute) Asymmetric intrauterine growth restriction (IUGR) (Acute) Subjective: Patient doing well. Pain controlled. Denies lightheadedness, dizziness, chest pain, shortness of breath, leg pain. Lochia normal. Wants to go home today. Breast-feeding. - Physical Exam Vitals/I&O's: Vital Signs Temp Pulse Resp BP Pulse Ox 98.1 F 77 16 100/61 98 06/06/20 03:20 06/06/20 07:42 06/06/20 03:20 06/06/20 07:42 06/06/20 03:20 Oxygen Delivery Method Room Air Weight: 151 lb Body Mass Index (BMI) 25.1 Intake and Output for Last 24 Hours 06/04/20 06/05/20 06/06/20 23:59 23:59 23:59 Intake Total 2665.56 / 2665.56 Output Total 1999 Balance 665.56 / 665.56 General: Alert, No apparent distress HEENT: Atraumatic Abdomen: Soft, Non Tender, Non-Distended, - - FF@U Extremities: No edema, No Calf Tenderness Skin: No rashes Neurological: Neuro grossly intact Psych/Mental Status: Normal Affect, Appropriate Current Medications Acetaminophen (Tylenol) 1,000 mg PO Q8H PRN PRN PRN Reason: Pain Score 1-3/10 Bisacodyl (Dulcolax) 10 mg RECTAL UD PRN PRN Reason: If no BM Dibucaine (Dibucaine) 1 applic TOPICAL TID PRN PRN; Protocol PRN Reason: Discomfort Ephedrine Sulfate () 10 mg IV Q10M PRN PRN Reason: hypotension Ephedrine Sulfate () 10 mg IM Q30M PRN PRN Reason: hypotension Hydrocortisone (Hytone) 1 applic TOPICAL TID PRN PRN; Protocol PRN Reason: Discomfort Naloxone HCl 4 mg/ Dextrose 504 mls @ 0 mls/hr IV .Q0M PRN; Protocol PRN Reason: To maintain Resp. rate >10 Ibuprofen (Motrin) 600 mg PO Q6H PRN PRN PRN Reason: Pain Score 1-3/10 Last Admin: 06/05/20 18:51 Dose: 600 mg Documented by: Methylergonovine Maleate (Methergine) 0.2 mg IM X1 PRN PRN Reason: Excess bleeding/uterine atony Nalbuphine HCl (Nubain) 5 mg IV Q3H PRN PRN PRN Reason: ITCHING Naloxone HCl (Narcan) 0.02 mg IV Q1M PRN PRN Reason: RR< 10 AND PT UNRESPONSIVE Ondansetron HCl (Zofran) 4 mg IV Q4H PRN PRN PRN Reason: Nausea Oxycodone HCl (Oxyir) 5 - 10 mg PO Q4H PRN PRN PRN Reason: Pain Score 4-10/10 Senna/Docusate Sodium (Senokot-S, Lin-Colace) 1 - 2 tablet PO DAILY PRN PRN PRN Reason: Constipation Simethicone (Mylicon) 80 mg PO PCHS PRN PRN Reason: Indigestion/Stomach pain Sodium Chloride () 5 - 15 ml IV UD PRN PRN Reason: SALINE FLUSH Last Admin: 06/05/20 05:19 Dose: 10 ml Documented by: Medical Necessity - Tobacco Use Smoking Status: Former smoker Assessment/Plan All Active Problems 32 weeks gestation of (Acute) Abdominal cramping complicating , antepartum (Acute) 35 weeks gestation of (Acute) contractions (Acute) 38 weeks gestation of (Acute) Spontaneous rupture of membranes (Acute) History of marijuana use (Acute) Asymmetric intrauterine growth restriction (IUGR) (Acute) PPD#1 s/p -Doing well. Breast-feeding. Desires to go home today. Discharge instructions reviewed.
--- NOTE | 2020-06-06 08:21 | DCINST_ITS ---
Discharge Diet: No Restrictions Discharge Activity: May Shower, May Take a Tub Bath May resume sexual activity in: 6 weeks Ice area for (Minutes): 15 Weight Bearing Status: Weight bearing as tolerated Lifting Restrictions: Nothing heavier than baby for 4 weeks Call your doctor if you observe: Fever of 101 or Higher, Inability to urinate, Inability to have a bowel movement, Using more than one pad per hour, Shortness of breath, Dizziness, Chest pain, Increased palpitations (irregular heartbeat), Calf discomfort, Uncontrolled pain Additional Instructions: If you experience any of the following, contact your healthcare provider. * Bleeding that soaks a pad every hour for 2 hours * Fever 100.4 or higher * Unrelieved incision or abdominal pain * Swelling, redness, discharge or bleeding from your incision or episiotomy site * Your incision begins to separate * Problems urinating (including inability to urinate or burning while urinating). * Visual changes * Severe headache * Flu-like symptoms * Pain or redness in one of both of your breasts * Pain, warmth, tenderness or swelling in your legs, especially the calf area * Frequent nausea and vomiting * Symptoms of depression or anxiety If you experience any of the following, call 911 or go to the nearest Emergency Room. * Chest pain * Problems breathing * Seizure activity * Partial or complete paralysis of a body part, slurred speech, weakness or drooping of the face, or a sudden inability to walk or hold your balance Allergies/Adverse Reactions: Allergies No Known Allergies Allergy (Verified 06/04/20 22:25) Medications to take at Discharge Prenatabs FA 1 tab PO DAILY 04/19/20 When: 1 week and 6 weeks Primary Care Physician: Tim Cotter III, MD [Primary Care Provider] - Test Results: Test results from this visit will be discussed in further detail at your follow- up appointment, if applicable.
[2020-06-06] MEDS: Acetaminophen 500 MG Tablet 1000 MG PO (09:49)
--- NOTE | 2020-06-06 12:20 | NURSING ---
1130 social service into see pt
--- NOTE | 2020-06-06 13:00 | CASEMGMT ---
Social Work Assessment Labor and Delivery Unit [facility] [place] [address] Phone number: [phone] Date of Referral: 06.05.2020 Time of Referral: 510 Referred By: Liya Cruz CNM Date of Intervention: 06.06.2020 Time of Intervention: 1300 Reason for Referral: Maternal marijuana use, depression, anxiety, and PTSD History obtained from: Medical records and mother of baby (MOB) Reinier Eugene Household composition: MOB and reported father of baby (FOB) Krystyna Talley (age 21) live with MOB's mother at this time. Home situation is reported to be safe and adequate. Plan to take baby to this home. Patient's parent/guardian status: MOB and FOB are involved. Baby is the first child for both and baby girl is to be named Lizandro Talley, born on 06.05.2022. MOB denies any form of abuse, control, or intimidation in relationship with FOB. Medical History: MOB is G2, P0 to 1 after delivering Lizandro. History of one SAB. care limited, and started late. There was one visit at 8 weeks, and then an anatomy scan at 19 weeks, and then then nothing until 23 weeks gestation. It is reported that COVID pandemic impeded consistent follow up until the 23 week laquita. Record indicates MOB is a poor historian. MOB with positive chlamydia during . Baby Lizandro born at 38 weeks gestation, 6 pounds delivery, and 8 and 9 at 1 and 5 minutes of life. Educational Status: High school, no reported issues with reading, writing, or learning. Financial Status: No current employment for either MOB or FOB. MOB's mother helps out. Infant Supplies: MOB reports to have all needed baby supplies including car seat, bassinet, crib, pack-n-play, clothing, diapers, and wipes. MOB is planning to breast feed baby. Childcare/Caregiver(s): MOB and FOB. Transportation: Denies issues at this time. Programs/Agencies Involved: Active with [employer] for food and medical. Active with WIC. Reports to have a counsellor Nguyen at [facility] and will follow up with this person if needed in the period. Plan for Dr. Cotter for pediatric follow up. Children Services/Legal Issues: None reported at this time. Behavioral Health Issues: Mental Health History: MOB has history of depression, anxiety, and PTSD. Has been off of medication for 2 years and reports to feel to be doing fine off of medications. MOB denies any history of suicidal ideation, planning, intent, or action. [facility]ick depression screen completed this date with a score of 4, below threshold of depression. Substance Use History: MOB reports history of marijuana use with last reported use in January 2020. MOB denies intent to use again in the future. Denies any alcohol use abuse issues, or during . Denies other illicit drug use including heroine, meth, cocaine, or other narcotic type medicine. Denies tobacco use. Drug Screens: Maternal drug screen positive on 02-20-2020 at 23 weeks and then negative at delivery on 06.05.2020. Baby's urine drug screen at delivery also negative. Meconium is pending. Family/Social Stressors: MOB reportedly quit her job during , while living in [place] and then became homeless so moved to [place] to live with MOB's mom. MOB reports the neighborhood that was living in was not the best to continue living in. Late PNC, maternal history of substance use in , and then maternal mental health history. Record indicates MOB broke up with FOB at one point, but during this assessment this creative services writer addressed and MOB denied a breakup. Support Systems: MOB's mother and the FOB are reported to be supports. Depression/Shaken Baby/Safe Sleeping educated to depression, risk factors present, and importance of seeking out help and support. MOB reports would return to usual counselor Nguyen for help and assistance. ASSESSMENT: Met with MOB and FOB together and then alone with MOB. MOB reports to feel safe with FOB. MOB cooperative and pleasant during social work visit. Normal eye contact. Reports to feel to have all needed baby supplies, as well as support from family at home going. MOB reports to feel housing is stable at this time, and to have enough support for basic needs. Reports can make own counseling appointment in the future if so needed. Denies any concerns. Reports to have a connection with the baby. No voiced concerns by nursing staff regarding parent/child interactions or bonding. Addressed with MOB recommendation for abstinence of substances, and especially while breast feeding. MOB expressed understanding and intent. Educated MOB to possibility of children services involvement should the baby's meconium come back positive. Declines referrals to [facility] or [facility]. Safe Plan of Care for related to substance use: Abstain from future use of substances. PLAN: MOB and baby to home at discharge. [facility] resource packet given. Packet on mood and anxiety disorder given as well as information on shaken baby prevention and safe sleeping. Monitor for meconium drug screen results. No other services requested or indicated. -JOSE Coffey, PAULINO *Information documented in this assessment generated with [employer]*
--- NOTE | 2020-06-06 13:46 | NURSING ---
1340 placed in car seat per parents; dc to home
--- NOTE | 2020-06-27 15:35 | CASEMGMT ---
Social Work Labor and Delivery Unit Summary: Meconium drug screen results for the baby are back and positive for marijuana. Called [facility] children services. Referral to Marisela Galarza regarding substance exposed in utero. Brief maternal and histories provided. Updated to that both MOB and baby had negative drug screens at time of delivery. Plan: MOB and baby have already been discharged from the hospital. Children services to follow-up with family regarding positive drug screen. No other family welfare social work professor requested or indicated from hospital standpoint. -JOSE Coffey, ELEVATOR EXAMINER AND ADJUSTER *Information documented in this note generated via [employer] system*
== END 2020-06-06 13:40 | disposition home or self-care (01) | DRG 807 ==
LOC: WPOUT 21:52 → WP 21:52
PROVIDERS: Advanced Practice Midwife; Admitting Provider Obstetrics & Gynecology; PCP Family Medicine; Visit Provider Obstetrics & Gynecology
DX: O36.5930 Maternal care for other known or suspected poor fetal growth, third trimester, not applicable or unspecified (principal); Z37.0 Single live birth; O76 Abnormality in fetal heart rate and rhythm complicating labor and delivery; Z3A.38 38 weeks gestation of pregnancy; O70.0 First degree perineal laceration during delivery; Z87.891 Personal history of nicotine dependence
CPT/HCPCS: 59025; 59050; 80307; 84112; 85025; 86850; 86900; 86901; 99218; J7120; A4216; G0378

== ENCOUNTER 2020-10-31 13:41 | Emergency (ER) | payer BC, MEDICAID, SELFPAY ==
[2020-10-31 13:42] VITALS: BP 125/68; PULSE 87; RESP 18; TEMP 35.4; O2SAT 97; BMI 24.7
--- NOTE | 2020-10-31 14:15 | ED.VISSUMM ---
- ER Visit Summary Date of Service: 10/31/20 Chief Complaint: Exposed to chlamydia History of Present Illness: The patient is a 20 F patient was exposed to chlamydia through intercourse. She is having discharge. No other complaints. She does not believe she is . Physical Examination: Afebrile and vital signs unremarkable. Abdomen soft and nontender. Back is nontender. Skin appears normal. Test Results: test, gonorrhea, chlamydia, trichomonas pending. Emergency Department Course and Treatment: Patient was treated with Flagyl, Rocephin, doxycycline while awaiting results. Safe sex practices. Outpatient follow-up. Return if worse. Treatment Plan: As above Disposition: Discharge Impression: Chlamydia cervicitis This note was generated with Virtual 3-D Display for Smart[employer] dictation software. It may contain incorrect words, spelling, and punctuation that were not noted in review of the chart prior to signing ED Disposition - Plan for ED Patient: Referrals: Tim Cotter III, MD [Primary Care Provider] -
--- NOTE | 2020-10-31 14:17 | ED.DEP ---
ED Disposition - Plan for ED Patient: Instructions: ED Cervicitis (STD), Treated Prescriptions: Doxycycline 100 mg PO BID #28 cap Prescription Printed Referrals: Tim Cotter III, MD [Primary Care Provider] -
[2020-10-31 14:22] LABS: Internal QC Validated? YES +Cl - CLEAR BKGD; Pregnancy, Urine Negative Negative
[2020-10-31] MEDS: Doxycycline 100 MG CAPSULE PO (14:40)
[2020-10-31] MEDS: metroNIDAZOLE 500 MG Tablet 2000 MG PO (14:40)
[2020-10-31] MEDS: Ceftriaxone 500 MG Vial 250 MG IM (14:43)
[2020-10-31 15:03] VITALS: PULSE 68; RESP 16; O2SAT 98
[2020-10-31 15:46] LABS: Probe Check PASS; Sample Adequacy Control PASS; Specimen Processing Control PASS; Trichomonas Vag DNA by PCR Negative (Negative)
[2020-10-31 16:51] LABS: Neisserai gonorrhoeae by PCR Negative (Negative); Probe Check PASS
[2020-10-31 16:52] LABS: Chlamydia Trachomatis by PCR POSITIVE (Negative)
--- NOTE | 2020-10-31 17:00 | ED.RN ---
PT IS AWARE THAT SHE IS POSITIVE FOR CHLAMYDIA.
== END 2020-10-31 15:04 | disposition home or self-care (01) ==
LOC: ED 14:53
PROVIDERS: Emergency Provider Emergency Medicine; PCP Family Medicine
DX: A56.09 Other chlamydial infection of lower genitourinary tract (principal); F17.200 Nicotine dependence, unspecified, uncomplicated
CPT/HCPCS: 81025; 87491; 87591; 87661; 96372; 99283

== ENCOUNTER 2020-11-24 19:31 | Emergency (ER) | payer BC, MEDICAID, SELFPAY ==
[2020-11-24 19:32] VITALS: BP 110/83; PULSE 95; RESP 16; TEMP 36.8; O2SAT 98; BMI 23.3
[2020-11-24 19:59] LABS: Red Blood Cells-Urine 0 SEEN /hpf (0-5)
[2020-11-24 20:11] LABS: Color, Urine Yellow (Yellow); Glucose, Dipstick Normal (Normal); Ketone-Dipstick Negative (Negative); Leukocyte Esterase-Dipstick 500 /ul (Negative); Nitrite-Dipstick Negative (Negative); Occult Blood-Urine Negative /ul (Negative); Protein-Dipstick Negative (Negative); Specific Gravity, Urine 1.025 (1.002-1.030); Urine Bilirubin Dipstick Negative (Negative); Urine Clarity Sl. Cloudy (Clear); Urine Urobilinogen Normal (Normal)
[2020-11-24 20:14] LABS: Amorphous Sediment 1+ URATE; Bacteria RARE /hpf (None Seen); Mucous, Urine RARE /hpf (<or=2+); Squamous Epithelial Cells - UA 0-5 SEEN /hpf (5-10); White Blood Cells 10-25 SEEN /hpf (0-5)
[2020-11-24 20:35] LABS: Internal QC Validated? YES +Cl - CLEAR BKGD; Pregnancy, Urine Negative Negative
--- NOTE | 2020-11-24 21:32 | ED.DCSUM_ITS ---
- ER Visit Summary Date of Service: 11/24/20 Chief Complaint: Chlamydia exposure History of Present Illness: The patient is a 20 F who presents after exposure to chlamydia 2 weeks ago. Patient states her sexual partner tested positive for chlamydia. Patient states she is starting to have a thick yellow vaginal discharge. Patient states nothing makes it better nothing makes it worse. Patient denies any fevers or chills. Patient denies any nausea or vomiting. Patient denies any dysuria or hematuria. Physical Examination: Vital signs are stable. Patient is afebrile. Patient is in no acute distress. Oral mucosa is pink and moist. Neck is supple. Trachea is midline. There is no JVD noted. Heart was regular rate and rhythm. Lungs are clear and equal bilaterally. Abdomen is soft. Bowel sounds are normal. There is no tenderness. There is no rebound or guarding noted. Skin is warm dry. Cranial nerves II through XII are intact. There are no focal motor or sensory deficits noted. Extremities are intact. There is no calf tenderness or edema. Test Results: Urinalysis showed leukocyte esterase of 500 with 10-25 white blood cells. Urine hCG was negative. GC and Chlamydia cultures were obtained and are pending. Emergency Department Course and Treatment: Patient was given a dose of Rocephin here and a dose of doxycycline here. Patient was given a prescription for doxycycline. Patient was instructed to follow-up with her REAL ESTATE REPRESENTATIVE as scheduled.. Patient understood and was agreeable with the plan. All questions were answered. Disposition: Discharge home Impression: STD exposure This note was generated with [employer] dictation software. It may contain incorrect words, spelling, and punctuation that were not noted in review of the chart rodney or to signing ED Disposition - Plan for ED Patient: Disposition: Home or Assisted Living Diagnosis: Sexually transmitted disease Instructions: ED Chlamydia, Treated (Female), ED Testing for Suspected STI Prescriptions: Doxycycline 100 mg PO BID #14 cap Transmission Status: Received by [id number] Referrals: Tim Cotter III, MD [Primary Care Provider] - 3-5 Days
[2020-11-24] MEDS: Doxycycline 100 MG CAPSULE PO (22:30)
[2020-11-24] MEDS: Ceftriaxone 500 MG Vial IM (22:30)
[2020-11-24 22:37] VITALS: BP 110/78; PULSE 75; RESP 16; O2SAT 97
[2020-11-26 00:41] LABS: Chlamydia Trachomatis by PCR Negative (Negative); Neisserai gonorrhoeae by PCR Negative (Negative); Probe Check PASS; Sample Adequacy Control PASS; Specimen Processing Control PASS
== END 2020-11-24 22:57 | disposition home or self-care (01) ==
LOC: ED 21:45
PROVIDERS: Emergency Provider Emergency Medicine; PCP Family Medicine
DX: A64 Unspecified sexually transmitted disease (principal)
CPT/HCPCS: 81001; 81025; 87491; 87591; 96372; 99283

== ENCOUNTER 2022-05-12 23:47 | Emergency (ER) | payer BC, MEDICAID, SELFPAY ==
[2022-05-12 23:49] VITALS: BP 111/75; PULSE 80; RESP 16; TEMP 36.8; O2SAT 98; BMI 22.1
--- NOTE | 2022-05-13 00:04 | RAD_ITS ---
EXAM: XR RIGHT HAND COMPLETE, 3 OR MORE VIEWS CLINICAL INDICATION: trauma TECHNIQUE: Frontal, lateral and oblique views of the right hand. This report was created using [employer] report generation technology. COMPARISON: None. FINDINGS: BONES/JOINTS: Unremarkable. No acute fracture. No subluxation. Normal alignment. Preservation of the joint space. No sclerotic or destructive changes observed. SOFT TISSUES: Unremarkable. No soft tissue swelling or gas. No radiopaque foreign body. RAD/Hand Min 3 Views IMPRESSION: Negative right hand x-rays. Electronically Signed: Vargas Camp MD at 0:30 EDT ,
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
[2022-05-13 00:44] VITALS: BP 128/74; PULSE 75; RESP 16; O2SAT 97
[2022-05-13] MEDS: Ketorolac 60 MG/2 ML Vial IM (00:48)
== END 2022-05-13 00:49 | disposition home or self-care (01) ==
PROVIDERS: Emergency Provider Emergency Medicine; Visit Provider Emergency Medicine
DX: S63.612A Unspecified sprain of right middle finger, initial encounter (principal); S62.629A Displaced fracture of middle phalanx of unspecified finger, initial encounter for closed fracture; Z87.891 Personal history of nicotine dependence; Y04.8XXA Assault by other bodily force, initial encounter
CPT/HCPCS: 73130; 96372; 99282

== ENCOUNTER 2022-09-12 14:23 | Emergency (ER) | payer BC, MEDICAID, SELFPAY ==
[2022-09-12 14:25] VITALS: BP 120/82; PULSE 100; RESP 14; TEMP 36.9; O2SAT 100; BMI 23.3
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
[2022-09-12] MEDS: Diphth,Pertuss(Acell),Tet Vac 0.5 ML Vial IM (15:14)
[2022-09-12 15:39] VITALS: BP 102/64; PULSE 74; RESP 15
== END 2022-09-12 15:43 | disposition home or self-care (01) ==
LOC: ED 15:35
PROVIDERS: Emergency Provider Emergency Medicine; Visit Provider Emergency Medicine
DX: S06.0X0A Concussion without loss of consciousness, initial encounter (principal); S96.912A Strain of unspecified muscle and tendon at ankle and foot level, left foot, initial encounter; S00.81XA Abrasion of other part of head, initial encounter; M79.621 Pain in right upper arm; M54.2 Cervicalgia; Z23 Encounter for immunization; Y04.8XXA Assault by other bodily force, initial encounter; Z87.891 Personal history of nicotine dependence
CPT/HCPCS: 70450; 72040; 73630; 90471; 90715; 99282

== ENCOUNTER 2024-08-10 15:01 | Emergency (ER) | payer BC, MEDICAID, SELFPAY ==
[2024-08-10 15:02] VITALS: BP 117/80; PULSE 86; RESP 15; TEMP 36.3; O2SAT 100; BMI 25.4
[2024-08-10 15:48] LABS: Mucous, Urine 0 SEEN /hpf (<or=2+); Red Blood Cells-Urine 0 SEEN /hpf (0-5); White Blood Cells 0 SEEN /hpf (0-5)
[2024-08-10 15:53] LABS: Absolute Lymphocyte Count 2.71 X10^3/uL (0.83-4.51); Absolute Neutrophil Count 6.2 X10^3/uL (2.0-7.7); Basophil# 0.09 X10^3/uL; Basophil% 0.9 % (0-1); Hematocrit 34.4 % (37-47); Hemoglobin 11.8 g/dL (12.0-15.0); Lymphocyte # 2.71 X10^3/ul (0.83-4.51); Lymphocyte % 26.9 % (19-41); Mean Corp Hgb Conc 34.3 g/dL (32-36); Mean Corpuscular Hgb 28.6 pg (27.0-32.0); Mean Corpuscular Volume 83.5 fL (81-99); Mean Platelet Vol. 10.7 fl (6.2-12.0); Monocyte# 0.85 X10^3/uL; Monocyte% 8.4 % (0-10); NRBC Flagged by Analyzer 0 % (0-5); Neutrophil # 6.19 X10^3/uL (2.7-7.7); Neutrophil % 61.6 % (47-70); Platelet Count 238 K/mm3 (150-450); RBC Distribution Width CV 13.7 % (11.6-14.6); RBC Distribution Width SD 42.1 fl (35.1-43.9); Red Blood Count 4.12 M/mm3 (4.2-5.4); White Blood Count 10.1 K/mm3 (4.4-11.0)
[2024-08-10 16:08] LABS: Color, Urine Yellow (Yellow); Glucose, Dipstick Normal (Normal); Ketone-Dipstick Negative (Negative); Leukocyte Esterase-Dipstick Negative /ul (Negative); Nitrite-Dipstick Negative (Negative); Occult Blood-Urine Negative /ul (Negative); Protein-Dipstick 15 mg/dl (Negative); Urine Bilirubin Dipstick Negative (Negative); Urine Clarity Sl. Cloudy (Clear); Urine Urobilinogen Normal (Normal)
[2024-08-10 16:11] LABS: hCG Titer Quant., Serum 545 mIU/mL (1-3)
[2024-08-10 16:42] LABS: Bacteria 1+ /hpf (None Seen); Squamous Epithelial Cells - UA 0-5 SEEN /hpf (5-10)
[2024-08-10 17:01] VITALS: BP 106/68; PULSE 100; RESP 18; O2SAT 97
[2024-08-10 17:10] VITALS: BP 106/68; PULSE 100; RESP 18; TEMP 36.7; O2SAT 100
== END 2024-08-10 17:12 | disposition home or self-care (01) ==
PROVIDERS: Physician Assistant; Emergency Provider Emergency Medicine; Referring Provider Emergency Medicine; Visit Provider Emergency Medicine
DX: O20.0 Threatened abortion (principal); O99.011 Anemia complicating pregnancy, first trimester; O23.591 Infection of other part of genital tract in pregnancy, first trimester; Z3A.08 8 weeks gestation of pregnancy; Z87.891 Personal history of nicotine dependence
CPT/HCPCS: 76817; 81001; 84702; 85025; 86900; 86901; 87070; 87205; 87491; 87591; 99283; A4216

== ENCOUNTER 2025-01-03 18:11 | Emergency (ER) | payer MEDICAID, SELFPAY ==
[2025-01-03 18:12] VITALS: BP 118/70; PULSE 79; RESP 18; TEMP 36.6; O2SAT 100; BMI 25.9
--- NOTE | 2025-01-03 18:36 | EKG12_ITS ---
Test Reason : WEAKNESS Blood Pressure : */* mmHG Vent. Rate : 69 BPM Atrial Rate : 69 BPM P-R Int : 120 ms QRS Dur : 82 ms QT Int : 390 ms P-R-T Axes : 12 12 10 degrees QTcB Int : 417 ms Normal sinus rhythm Normal ECG Confirmed by CAROL ESPINAL, ERICKA ([id number]), television news video editor CARLOS GUPTA ([id number]) on 01/05/2025 9:23:26 AM Referred By: CRISTOFER/GONZALEZ Confirmed By: ERICKA MEDINA MD
--- NOTE | 2025-01-03 18:39 | EDS_ITS ---
HPI <IVAN Aguilar - Last Filed: 01/03/25 20:50> History of Present Illness Chief Complaint: Weakness Narrative Narrative: Patient is a 24-year-old female with no significant ankle history, patient is a 2 para 1. Patient is currently 25 weeks with her second child. Patient states that over the last week she been feeling off more weak, numbness and feeling in her upper and lower extremities. Patient states today she had a TREASURER appointment, she was feeling fine at that time did not mention any of this to him or her. Patient states today now she feels very weak, tired, and she is concerned because she has not been eating or drinking correctly. Patient states has been eating a lot of sweets lately, she denies any actual syncopal episodes. She has been feeling the baby move. Patient states she feels intermittent discomfort of the right upper quadrant intermittently. PFSH <IVAN Aguilar - Last Filed: 01/03/25 20:50> PFSH Medical History Miscarriage Former smoker Home Medications ?Medication ?Instructions ?Recorded ?Last Taken ?Type doxycycline monohydrate 100 mg 100 mg PO BID #28 caps 10/31/20 Unknown Rx capsule doxycycline monohydrate 100 mg 100 mg PO BID #14 caps 11/24/20 Unknown Rx capsule hydrocodone-acetaminophen 5-325mg 1 tab PO Q6H PRN PRN Pain 3 days 05/13/22 Unknown Rx 5mg-325mg #10 TABLETS naproxen 500 mg tablet 500 mg PO BID #14 tabs 09/12 Unknown Rx clindamycin phosphate 2 % vaginal 1 appful vaginal QHS 7 days #40 08/10/24 Unknown Rx cream grams Allergy/AdvReac Type Severity Reaction Status Date / Time No Known Allergies Allergy Verified 01/03/25 18:12 Family History no significant family his Social History Smoking Status: Former smoker substance use type: does not use ROS <IVAN Aguilar - Last Filed: 01/03/25 20:50> ROS ED ROS Narrative Constitutional: Negative for fever, chills, weight loss., Positive generalized weakness Eyes: Negative for vision loss, vision change, double vision ENT: Negative for any sore throat, ear pain, congestion Cardiovascular: Negative for any chest pain, tightness, palpitations Respiratory: Negative for any cough, sputum production, hemoptysis, dyspnea, dyspnea on exertion, orthopnea Gastrointestinal: Negative for any abdominal pain, nausea, vomiting, diarrhea, constipation, blood in stool, blood in vomit : Negative for any urinary frequency, dysuria, retention, blood in urine Muscle skeletal: Negative for any neck pain, back pain Neurological: Negative for any headache, syncope. Positive feeling of dizziness, lightheadedness Skin: Negative for any rashes, itching, abrasions, lacerations Psychiatric: Negative for any depression, anxiety, stress, suicidal ideation, homicidal ideation Hematologic: Negative for any excessive bruising, easy bleeding EXAM <IVAN Aguilar - Last Filed: 01/03/25 20:50> Physical Exam Narrative Exam Narrative: Vital signs reviewed. Patient is alert and orient x 4, in no distress. HEET: Head normocephalic atraumatic, TMs clear bilaterally. Posterior pharynx is clear, moist mucous membranes. Nares clear bilaterally. Neck: Supple with no lymphadenopathy or tenderness. No signs of meningismus. Cardiac: Regular rate and rhythm no murmurs gallops or rubs, equal peripheral pulses bilaterally. Respiratory: Lungs clear to auscultation bilaterally. No chest tenderness. Abdomen: Soft, nontender, nondistended. No abdominal bruit or pulsatile masses. No hepatosplenomegaly. Abdomen is consistent with 25 weeks Extremities: No peripheral edema, no signs of gross trauma or deformity. Active full range of motion of all extremities. Neuro: Cranial nerves II through XII intact, no focal neurological deficits. Skin: Clean dry and intact with no rash, purpura, petechiae, vesicles or pustules. Backs/flank: No CVA tenderness, no midline spinal tenderness, no deformity. Psych: Normal mood and affect. No SI, HI or acute psychosis. Const Vital Signs: 01/03/25 18:12 01/03/25 19:19 01/03/25 20:12 Temperature 98 F Temperature Source Oral Pulse Rate 79 77 Respiratory Rate 18 18 Respiratory Effort Normal Respiratory Pattern Normal Blood Pressure 118/70 109/72 Blood Pressure Mean 86 84 Pulse Ox 100 97 Oxygen Delivery Method Room Air Room Air Positive well nourished and well developed General Appearance ED: well developed <Dr. Bjorn Luevano DO - Last Filed: 01/03/25 19:44> Physical Exam Const Vital Signs: 01/03/25 18:12 01/03/25 19:19 01/03/25 20:12 Temperature 98 F Temperature Source Oral Pulse Rate 79 77 Respiratory Rate 18 18 Respiratory Effort Normal Respiratory Pattern Normal Blood Pressure 118/70 109/72 Blood Pressure Mean 86 84 Pulse Ox 100 97 Oxygen Delivery Method Room Air Room Air [facility] <Navi Guzman NPMohan - Last Filed: 01/03/25 20:50> [facility] Lab Data Labs: Laboratory Results - last 24 hr 01/03/25 18:41 WBC 12.0 H RBC 3.68 L Hgb 10.4 L Hct 30.2 L MCV 82.1 MCH 28.3 MCHC 34.4 RDW Std Deviation 41.5 RDW Coeff of Ry 13.9 Plt Count 247 MPV 10.1 Immature Gran % (Auto) 0.800 Neut % (Auto) 65.9 Lymph % (Auto) 20.6 [place] % (Auto) 10.9 H Eos % (Auto) 1.1 Baso % (Auto) 0.7 Absolute Neuts (auto) 7.9 H Absolute Lymphs (auto) 2.47 Nucleated RBC % 0 Sodium 136 Potassium 3.9 Chloride 106 Carbon Dioxide 18.6 L Anion Gap UNABLE TO CALCULATE L BUN 5 Creatinine 0.59 L Estim Creat Clear Calc 142.70 Est GFR (MDRD) Non-Af 127 BUN/Creatinine Ratio 9.1 L Glucose 75 Calcium 9.2 Total Bilirubin < 0.15 AST 20 ALT 16 Alkaline Phosphatase 69 Troponin T High Sens < 6 Total Protein 6.5 Albumin 3.8 Globulin UNABLE TO CALCULATE L Albumin/Globulin Ratio UNABLE TO CALCULATE L Lipase 28 Urine Color Yellow Urine Clarity Clear Urine pH 7.0 Ur Specific [place] 1.010 Urine Protein Negative Urine Glucose (UA) Normal Urine Ketones Negative Urine Occult Blood Negative Urine Nitrite Negative Urine Bilirubin Negative Urine Urobilinogen Normal Ur Leukocyte Esterase 25 H Urine RBC 0 SEEN Urine WBC 5-10 SEEN Ur Squamous Epith Cells 5-10 SEEN Urine Bacteria 1+ Urine Mucus 1+ EKG Normal sinus rhythm: Attestation: I personally reviewed and interpreted this EKG as follows: Comments: Normal sinus rhythm, rate of 69 bpm, DE interval 120 ms, QRS duration 82 ms, no acute ST elevation, no acute infarct noted. Treatment and Re-Evaluation :: Differential diagnosis includes however is not limited to: Vasovagal syncope, gestational diabetes, hypovolemia, dehydration, electrolyte abnormality, cholecystitis, UTI Patient appears generally well, vital signs are stable, patient is nontoxic- appearing. Presenting to the emergency department for complaints of weakness, dizziness over the last week. I did perform orthostatic vital signs myself, patient's blood pressure remained stable, however patient's heart rate went from 85-105. Patient will receive IV fluids, lab value such as CBC CMP lipase, urinalysis. heart tones will be obtained. Patient CBC shows slight leukocytosis with white blood count 12.0, patient's hemoglobin is 10.4, patient's chemistries show carbon oxide 8.6 slightly low, creatinine within normal limits, patient has no transaminitis. Patient felt better after 1 L normal saline. COVID-19 influenza RSV was negative. Patient's urinalysis did show 1+ bacteria, 5-10 squamous cells, 5-10 white blood cells as well as 25 leukocytes. Secondary to this this to be sent for culture patient replaced on Keflex twice a day for 5 days. She will follow-up closely with her TREASURER. heart tones within normal limits. Patient stable for discharge. ED attending note: I evaluated the patient in conjunction with the TRAMAINE. I agree with his/her statements and above findings. I have personally performed a face to face assessment of the patient and have reviewed the TRAMAINE Note. I performed a substantive portion of the visit including all aspects of the following. I personally saw the patient performed chart review, physical exam, reviewed labs, imaging (if obtained), and formulated a treatment and management plan. 24-year-old female presents with diffuse weakness and fatigue. Notes several days of nonbloody diarrhea. She complains of intermittent mid abdominal pain. Not right upper quadrant pain but mid abdomen no vomiting. No vaginal bleeding. No passage of any tissue or leakage of any fluid. No chest pain, no shortness of breath. She does endorse a mild intermittent headache. Denies headache at this time. Patient denies sudden onset or thunderclap headache, denies maximal intensity within 1 minute, vomiting, neck pain, stiffness, changes in vision, fever, history malignancy, syncope, or seizures associated with headache. Exam: Alert and oriented x3, neuro exam at baseline, cranial nerves II through XII are intact. No pain with extraocular muscle movement. There is negative test of skew. 5 of 5 strength in upper and lower extremities in flexion extension. Intact sensation to light touch in upper and lower extremity dermatomes. No truncal or extremity ataxia. No dysdiadochokinesia. Normal gait. 2+ reflexes in upper and lower extremities. No meningeal signs. Negative Babinski. NIH of 0. Abdomen with a gravid uterus. Soft nontender nondistended. No peritoneal signs. Negative Dhillon sign. MDM/plan: Will obtain labs, EKG give a liter of fluid. I considered severe abnormalities of the brain including ICH, cerebral vein thrombosis however the patient's neurologic exam was intact. She did not have a fever, neck stiffness or meningismus. She had no signs of incoordination or lateralizing deficits. As such have a low suspicion for these emergent etiologies. Also consider severe intra-abdominal pathology including gallbladder disease. T he patient did have a negative Dhillon sign and relatively benign abdominal exam. Will determine need for additional images based on results of LFTs and lipase This note was generated with Mipso dictation software. It may contain incorrect words, spelling, and punctuation that were not noted in review of the chart prior to signing. <Dr. Bjorn Luevano, DO - Last Filed: 01/03/25 19:44> [facility] Lab Data Labs: Laboratory Results - last 24 hr 01/03/25 18:41 WBC 12.0 H RBC 3.68 L Hgb 10.4 L Hct 30.2 L MCV 82.1 MCH 28.3 MCHC 34.4 RDW Std Deviation 41.5 RDW Coeff of Ry 13.9 Plt Count 247 MPV 10.1 Immature Gran % (Auto) 0.800 Neut % (Auto) 65.9 Lymph % (Auto) 20.6 [place] % (Auto) 10.9 H Eos % (Auto) 1.1 Baso % (Auto) 0.7 Absolute Neuts (auto) 7.9 H Absolute Lymphs (auto) 2.47 Nucleated RBC % 0 Sodium 136 Potassium 3.9 Chloride 106 Carbon Dioxide 18.6 L Anion Gap UNABLE TO CALCULATE L BUN 5 Creatinine 0.59 L Estim Creat Clear Calc 142.70 Est GFR (MDRD) Non-Af 127 BUN/Creatinine Ratio 9.1 L Glucose 75 Calcium 9.2 Total Bilirubin < 0.15 AST 20 ALT 16 Alkaline Phosphatase 69 Troponin T High Sens < 6 Total Protein 6.5 Albumin 3.8 Globulin UNABLE TO CALCULATE L Albumin/Globulin Ratio UNABLE TO CALCULATE L Lipase 28 Urine Color Yellow Urine Clarity Clear Urine pH 7.0 Ur Specific [place] 1.010 Urine Protein Negative Urine Glucose (UA) Normal Urine Ketones Negative Urine Occult Blood Negative Urine Nitrite Negative Urine Bilirubin Negative Urine Urobilinogen Normal Ur Leukocyte Esterase 25 H Urine RBC 0 SEEN Urine WBC 5-10 SEEN Ur Squamous Epith Cells 5-10 SEEN Urine Bacteria 1+ Urine Mucus 1+ Treatment and Re-Evaluation :: Differential diagnosis includes however is not limited to: Vasovagal syncope, gestational diabetes, hypovolemia, dehydration, electrolyte abnormality, cholecystitis, UTI Patient appears generally well, vital signs are stable, patient is nontoxic- appearing. Presenting to the emergency department for complaints of weakness, dizziness over the last week. I did perform orthostatic vital signs myself, patient's blood pressure remained stable, however patient's heart rate went from 85-105. Patient will receive IV fluids, lab value such as CBC CMP lipase, urinalysis. heart tones will be obtained. ED attending note: I evaluated the patient in conjunction with the TRAMAINE. I agree with his/her statements and above findings. I have personally performed a face to face assessment of the patient and have reviewed the TRAMAINE Note. I performed a substantive portion of the visit including all aspects of the following. I personally saw the patient performed chart review, physical exam, reviewed labs, imaging (if obtained), and formulated a treatment and management plan. 24-year-old female presents with diffuse weakness and fatigue. Notes several days of nonbloody diarrhea. She complains of intermittent mid abdominal pain. Not right upper quadrant pain but mid abdomen no vomiting. No vaginal bleeding. No passage of any tissue or leakage of any fluid. No chest pain, no shortness of breath. She does endorse a mild intermittent headache. Denies headache at this time. Patient denies sudden onset or thunderclap headache, denies maximal intensity within 1 minute, vomiting, neck pain, stiffness, changes in vision, fever, history malignancy, syncope, or seizures associated with headache. Exam: Alert and oriented x3, neuro exam at baseline, cranial nerves II through XII are intact. No pain with extraocular muscle movement. There is negative test of skew. 5 of 5 strength in upper and lower extremities in flexion extension. Intact sensation to light touch in upper and lower extremity dermatomes. No truncal or extremity ataxia. No dysdiadochokinesia. Normal gait. 2+ reflexes in upper and lower extremities. No meningeal signs. Negative Babinski. NIH of 0. Abdomen with a gravid uterus. Soft nontender nondistended. No peritoneal signs. Negative Dhillon sign. MDM/plan: Will obtain labs, EKG give a liter of fluid. I considered severe abnormalities of the brain including ICH, cerebral vein thrombosis however the patient's neurologic exam was intact. She did not have a fever, neck stiffness or meningismus. She had no signs of incoordination or lateralizing deficits. As such have a low suspicion for these emergent etiologies. Also consider severe intra-abdominal pathology including gallbladder disease. The patient did have a negative Dhillon sign and relatively benign abdominal exam. Will determine need for additional images based on results of LFTs and lipase This note was generated with Mipso dictation software. It may contain incorrect words, spelling, and punctuation that were not noted in review of the chart prior to signing. Discharge Plan Triage Chief Complaint: Weakness ED Midlevel Provider: Navi Guzman ED Provider: Bjorn Luevano Dx/Rx/DC Orders Clinical Impression: Weakness, 25 weeks gestation of , Bacteria in urine Instructions: : Weeks 22 to 26, ED Weakness Uncertain Cause Prescriptions: No Action doxycycline monohydrate 100 MG capsule 100 mg PO BID Qty: 28 0RF doxycycline monohydrate 100 MG capsule 100 mg PO BID Qty: 14 0RF hydrocodone-acetaminophen [hydrocodone-acetaminophen] 5-325 mg tablet 1 tab PO Q6H PRN PRN (Reason: Pain) 3 Days Qty: 10 0RF naproxen 500 mg tablet 500 mg PO BID Qty: 14 0RF clindamycin phosphate 2 % cream 1 appful vaginal QHS 7 Days Qty: 40 0RF Rx Instructions: for 3 days Primary Care Provider: Care Physician,No Primary Referrals: Care Physician,No Primary [Primary Care Provider] - Activity Restrictions/Additional Instructions: Please continue following up with your TREASURER. Print Language: Indonesian Disposition Disposition: Home, Self Care
[2025-01-03] MEDS: 0.9% Normal Saline (1000mL) 1,000 ML 999 ML IV (18:44)
[2025-01-03 18:50] LABS: Red Blood Cells-Urine 0 SEEN /hpf (0-5)
[2025-01-03 18:51] LABS: Absolute Lymphocyte Count 2.47 X10^3/uL (0.83-4.51); Absolute Neutrophil Count 7.9 X10^3/uL (2.0-7.7); Basophil# 0.08 X10^3/uL; Basophil% 0.7 % (0-1); Eosinophil# 0.13 X10^3/uL; Eosinophils% 1.1 % (0-5); Hematocrit 30.2 % (37-47); Hemoglobin 10.4 g/dL (12.0-15.0); Lymphocyte # 2.47 X10^3/ul (0.83-4.51); Lymphocyte % 20.6 % (19-41); Mean Corp Hgb Conc 34.4 g/dL (32-36); Mean Corpuscular Hgb 28.3 pg (27.0-32.0); Mean Corpuscular Volume 82.1 fL (81-99); Mean Platelet Vol. 10.1 fl (6.2-12.0); Monocyte# 1.31 X10^3/uL; Monocyte% 10.9 % (0-10); NRBC Flagged by Analyzer 0 % (0-5); Neutrophil # 7.91 X10^3/uL (2.7-7.7); Neutrophil % 65.9 % (47-70); Platelet Count 247 K/mm3 (150-450); RBC Distribution Width CV 13.9 % (11.6-14.6); RBC Distribution Width SD 41.5 fl (35.1-43.9); Red Blood Count 3.68 M/mm3 (4.2-5.4)
[2025-01-03 18:56] LABS: Color, Urine Yellow (Yellow); Glucose, Dipstick Normal (Normal); Ketone-Dipstick Negative (Negative); Leukocyte Esterase-Dipstick 25 /ul (Negative); Nitrite-Dipstick Negative (Negative); Occult Blood-Urine Negative /ul (Negative); Protein-Dipstick Negative (Negative); Urine Bilirubin Dipstick Negative (Negative); Urine Clarity Clear (Clear); Urine Urobilinogen Normal (Normal)
[2025-01-03 19:57] LABS: Bacteria 1+ /hpf (None Seen); Mucous, Urine 1+ /hpf (<or=2+); Squamous Epithelial Cells - UA 5-10 SEEN /hpf (5-10); White Blood Cells 5-10 SEEN /hpf (0-5)
[2025-01-03 20:12] VITALS: BP 109/72; PULSE 77; RESP 18; O2SAT 97
[2025-01-03 20:18] LABS: ALB/GLOB Ratio UNABLE TO CALCULATE RATIO (0.9-2.4); Alanine Aminotransfer ALT/SGPT 16 U/L (<=34); Albumin, Serum 3.8 g/dL (3.5-5.0); Alkaline Phosphatase 69 U/L (35-104); Anion Gap UNABLE TO CALCULATE (5-15); Chloride 106 mmol/L (98-108); Globulin UNABLE TO CALCULATE g/dL (2.2-4.2); Potassium 3.9 mmol/L (3.3-5.1); Sodium Level 136 mmol/L (133-145); Troponin T High Sensitivity < 6 ng/L (<=14)
[2025-01-03 20:28] LABS: Lipase 28 U/L (13-75)
[2025-01-03 20:29] LABS: AST(SGOT) 20 U/L (<=31); BUN 5 mg/dL (4-19); BUN/Creat Ratio 9.1 RATIO (10-20); Calcium,Total 9.2 mg/dL (7.6-11.0); Carbon Dioxide 18.6 mmol/L (21.0-32.0); Creatinine, Serum 0.59 mg/dL (0.70-1.20); EST Glomerular Filtration Rate 127 (>60); Glucose 75 mg/dL (70-99); Protein, Total 6.5 g/dL (5.9-8.4); Total Bilirubin < 0.15 mg/dL (0.00-1.30)
[2025-01-03] MEDS: Cephalexin 500 MG Capsule PO (20:59)
[2025-01-03 21:03] VITALS: BP 94/65; PULSE 78; RESP 17; TEMP 36.6; O2SAT 99
== END 2025-01-03 21:04 | disposition home or self-care (01) ==
PROVIDERS: Nurse Practitioner; Emergency Provider Emergency Medicine; Visit Provider Emergency Medicine
DX: O99.891 Other specified diseases and conditions complicating pregnancy (principal); R10.11 Right upper quadrant pain; R82.71 Bacteriuria; R42 Dizziness and giddiness; R53.1 Weakness; Z3A.25 25 weeks gestation of pregnancy; Z87.891 Personal history of nicotine dependence
CPT/HCPCS: 80053; 81001; 83690; 84484; 85025; 87086; 87631; 93005; 96360; 96361; 99283

== ENCOUNTER 2025-01-28 21:55 | Outpatient (CLI) | payer MEDICAID, SELFPAY ==
[2025-01-28 22:11] VITALS: BMI 26.7
[2025-01-28 22:28] VITALS: BP 101/63; PULSE 78; RESP 16; TEMP 36.4
--- NOTE | 2025-01-28 23:09 | OB.TRI.NOTE ---
HPI - General General Date of Admission: 01/28/25 Date of Service: 01/28/25 HPI Narrative REINIER COOK, is a 24 y/o G28 weeks 6 days gestation who presents to L&D for contractions. She denies loss of fluid, vaginal bleeding, or dec fm. A UA was ordered and instructions to perform an NST were given to the nurse [facility] Medical History Miscarriage Former smoker Home Medications ?Medication ?Instructions ?Recorded ?Last Taken ?Type naproxen 500 mg tablet 500 mg PO BID #14 tabs 09/12/22 Unknown Rx Held on 01/28/25. Instructions: Order Changed ascorbic acid (vitamin C) 1,000 mg 1 g PO DAILY 01/28/25 01/27/25 09:00 History tablet (C-1000) ferrous sulfate 325 mg (65 mg 325 mg PO DAILY 01/28/25 01/27/25 09:22 History iron) tablet vit no.95-ferrous 1 tab PO DAILY 01/28/25 01/27/25 09:00 History fumarate 28 mg-folic acid 800 mcg tablet () Allergy/AdvReac Type Severity Reaction Status Date / Time No Known Allergies Allergy Verified 01/28/25 22:20 Social History Smoking Status: Former smoker substance use type: does not use History Elective abortions Hx Para 0 Spontaneous abortions Hx # Term Pregnancies Ectopic pregnancies Hx # Pregnancies Multiple births # of living children ROS Constitutional Constitutional: Reports systems reviewed and no addt'l complaints, except as documented Gastrointestinal Gastrointestinal: Denies bloating, constipation, cramping, diarrhea, nausea or vomiting Genitourinary Genitourinary: Reports other Details: Denies vaginal odor, vaginal bleeding, or vaginal discharge ; Denies difficulty urinating or flank pain NST FHR Rate Baby A Baseline: 140 Variability:: Minimal and Moderate Accelerations:: 15 x 15 Decelerations:: None NST Reactive:: Yes FHR Category:: Category I Uterine Activity:: some irregular contractions observed and palpated per nurse Assessment & Plan (1) False labor, antepartum: PLAN: plan to send urine for UA-C. encourage hydration NST appropriate for gestational age. Charges/Coding Multi Select Codes Urinary/Genital Urinary/Genital CPT Codes: 40891-85 non-stress test Interp
[2025-01-28 23:16] LABS: Color, Urine Yellow (Yellow); Glucose, Dipstick Normal (Normal); Ketone-Dipstick Negative (Negative); Leukocyte Esterase-Dipstick Negative /ul (Negative); Nitrite-Dipstick Negative (Negative); Occult Blood-Urine 10 /ul (Negative); Protein-Dipstick 30 mg/dl (Negative); Specific Gravity, Urine 1.025 (1.002-1.030); Urine Bilirubin Dipstick Negative (Negative); Urine Clarity Clear (Clear); Urine Urobilinogen Normal (Normal)
== END 2025-01-28 23:45 | disposition home or self-care (01) ==
LOC: WPOUT 22:04 → WP 22:05
PROVIDERS: Visit Provider Registered Nurse
DX: O47.03 False labor before 37 completed weeks of gestation, third trimester (principal); Z3A.28 28 weeks gestation of pregnancy; Z87.891 Personal history of nicotine dependence; Z87.59 Personal history of other complications of pregnancy, childbirth and the puerperium
CPT/HCPCS: 59025; 59050; 81002; 99221; G0378